=== PATIENT | male | born 1940 | race Caucasian/White ===

== ENCOUNTER → 2017-09-15 | Outpatient (CLI) | payer OTHER ==
[~2017-09-15] MED LIST: ASPI325; ASPI325 PO; ASPI81CH PO; ATECHL; ATEN50; ATEN50 PO; ATOR40TA; ATOR40TA PO; CHLO25A PO; CLOP75 PO; CYCL10 PO; HYDACE5 PO; Hair, Skin & N1 EACH PO; LEVSOD25 PO; NEBI5 PO; NIFE30ER PO; OLME20; OLME20 PO; Pacerone100 MG PO; RAMI5; RAMI5 PO; THYR60; THYR60 PO; TRIHYD253A PO; [UNRECOGNIZED DRUG - REMARK] PO
== END | disposition home or self-care (01) ==
LOC: PLD 13:27 → LAB SHORT 13:27
DX: L21.9 Seborrheic dermatitis, unspecified (principal)
CPT/HCPCS: 88305

== ENCOUNTER 2018-04-28 06:05 | Day surgery (SDC) | payer OTHER ==
[~2018-04-28] VITALS: Ht 167.6 cm; Wt 83.5 kg
[~2018-04-28 06:05] MED LIST changes: +AMLO5 PO; +Bystolic20 MG PO; +Isosorbide Mono30 MG PO; -NEBI5 PO; +NITR.6SL; +POTA10T PO; +ROSUVASTATIN CA20 MG PO; +TORSE20 PO
--- NOTE | 2018-04-28 07:12 | NUR ---
Ambulatory in Day Surgery. Surgical site prepped with 2% Chlorhexidine cloth wipe. History, Chart, Medications and Allergies reviewed before start of procedure. Lungs clear T/O to Auscultation. Patient confirms NPO status and agrees with scheduled surgery. Pre-Op teaching done. Pt verbalizes understanding. Patient States Post-Procedure ride home has been arranged. Patient reports completing Chlorhexadine shower X2 prior to admission to hospital.
--- NOTE | 2018-04-28 09:24 | NUR ---
04/28/18 0924 Apryl Alas SITE CHECK UPON START OF UMBILICAL HERNIA REPAIR @ 3430
--- NOTE | 2018-04-28 10:57 | NUR ---
PT DOING WELL. FOLLOWS INSTRUCTIONS TO CDB.
--- NOTE | 2018-04-28 11:04 | NUR ---
PT TO STEP VIA GURNEY. PT IS DROWSY, OPENS EYES TO VERBAL STIMULI. BIOX 88% ON RA. PT ENCOURAGED TO TAKE DEEP BREATHS, BIOX UP TO 93% BUT BIOX FALLS QUICKLY TO 83% WHEN PT RESTING. PT PLACED BACK ON O2 AT 2L NC. BIOX NO 94% 2L NC. PT DRESSING D&I TO UMBILICAL AREA AND R INGUINAL AREA.
--- NOTE | 2018-04-28 11:15 | NUR ---
PT MORE AWAKE AT THIS TIME. PT TO BEDSIDE. PT REPORTS PAIN ABOUT 3-4/10. O2 DECREASED TO 1L/MIN NC.
--- NOTE | 2018-04-28 11:33 | NUR ---
PT MORE AWAKE. TAKING PO FLUIDS AND CRACKERS WITHOUT DIFFICULTY. PT O2 TURNED OFF BIOX ABOUT 92% ON RA. PT ENCOURAGE TO TAKE DEEP BREATHS OFTEN AND COUGH. PT DEMONSTRATES UNDERSTANDING OF DEEP BREATHIMG AMD COUGHING. REVIEWED DISCHARGE INSTRUCTIONS WITH BOTH PATIENT AND HIS .
--- NOTE | 2018-04-28 12:00 | NUR ---
PT BECAME NAUSEA WHEN TRYING TO GET DRESSED. ORDER FOR ZOFRAN 4MG ODT FROM DR. WELCH FAXED TO PHARMACY. PT OUT TO GET CAR. PT DRESSED AND SITTING ON EDGE OF BED WAITING FOR MEDICATIONS. PT REPORTS FEELING BETTER.
--- NOTE | 2018-04-28 12:12 | NUR ---
Dressing to procedure site clean, dry, intact with no visible drainage, swelling, erythema or bruising noted. Patient States Post-Procedure ride home has been arranged. PT GIVEN ZOFRAN PRIOR TO DISCHARGE.
== END 2018-04-28 12:13 | disposition home or self-care (01) ==
LOC: ORSCMMR 06:05 → ORD 07:30 → ORSCMMR 07:30
PROVIDERS: Surgery
PROC: 0YU50JZ Supplement Right Inguinal Region with Synthetic Substitute, Open Approach (ICD-10-PCS; principal; 2018-04-28 07:30)
PROC: 0WUF0JZ Supplement Abdominal Wall with Synthetic Substitute, Open Approach (ICD-10-PCS; principal; 2018-04-28 07:30)
DX: K40.91 Unilateral inguinal hernia, without obstruction or gangrene, recurrent (principal); K42.9 Umbilical hernia without obstruction or gangrene; I10 Essential (primary) hypertension; I48.91 Unspecified atrial fibrillation; I25.10 Atherosclerotic heart disease of native coronary artery without angina pectoris; J44.9 Chronic obstructive pulmonary disease, unspecified; E03.9 Hypothyroidism, unspecified; Z95.0 Presence of cardiac pacemaker; Z79.01 Long term (current) use of anticoagulants; Z79.82 Long term (current) use of aspirin; Z79.899 Other long term (current) drug therapy
CPT/HCPCS: C1781; J0690; J1100; J2250; J2370; J2405; J2710; J3010; J7120

== ENCOUNTER 2019-05-29 17:29 | Emergency (ER) | payer OTHER ==
[~2019-05-29] VITALS: Ht 167.6 cm; Wt 75.8 kg
[2019-05-29 18:24] LABS: BASOPHILS ABSOLUTE AUTO 0.03 K/mm3 (0.00-0.23); BASOPHILS PERCENT AUTO 0 % (0-2); EOSINOPHILS ABSOLUTE AUTO 0.01 K/mm3 (0.00-0.68); EOSINOPHILS PERCENT AUTO 0 % (0-6); Hematocrit 38.8 % (37.0-53.0); Hemoglobin 12.6 g/dL (13.5-17.5); IMMATURE GRAN ABSOLUTE AUTO 0.03 K/mm3 (0.00-0.10); IMMATURE GRAN PERCENT AUTO 0 % (0-1); LYMPHOCYTES ABSOLUTE AUTO 1.53 K/mm3 (0.84-5.20); LYMPHOCYTES PERCENT AUTO 18 % (21-46); MONOCYTES ABSOLUTE AUTO 0.83 K/mm3 (0.16-1.47); MONOCYTES PERCENT AUTO 10 % (4-13); Mean Corpuscular HGB 32.4 pg (26.0-34.0); Mean Corpuscular HGB Conc 32.5 g/dL (31.5-36.5); Mean Corpuscular Volume 100 fL (80-100); Mean Platelet Volume 10.8 fL (9.1-12.4); NEUTROPHILS ABSOLUTE AUTO 5.87 K/mm3 (1.96-9.15); NEUTROPHILS PERCENT AUTO 71 % (41-73); Platelet Count 162 K/mm3 (150-400); RDW Coefficient Variation 13.4 % (11.7-14.2); RDW Standard Deviation 48.7 fL (35.1-46.3); Red Blood Cell Count 3.89 M/mm3 (4.30-5.90)
[2019-05-29 18:44] LABS: Alanine Aminotransfer (ALT/SGP 34 U/L (12-78); Anion Gap 6 mmol/L (6-16); Aspartate Aminotrans (AST/SGOT 20 U/L (12-37); Blood Urea Nitrogen 30 mg/dL (8-24); CO2, Blood 26 mmol/L (21-32); Calcium, Blood 8.6 mg/dL (8.5-10.1); Chloride, Blood 102 mmol/L (98-108); Creatinine, Blood 1.11 mg/dL (0.60-1.20); Glomerular Filtration Rate >60 (60-); Glucose, Blood 121 mg/dL (70-99); Sodium, Blood 134 mmol/L (136-145)
[2019-05-29 18:45] LABS: Albumin/Globulin Ratio 0.6 (0.8-1.8); Alk Phos 102 U/L (50-136); Bilirubin, Total 0.7 mg/dL (0.1-1.0); Globulin, Blood 4.8 g/dL (2.2-4.0); Total Protein, Blood 7.8 g/dL (6.4-8.2)
[2019-05-29 20:08] LABS: Source, Urine Clean Catch
[2019-05-29 20:15] LABS: Bilirubin, Urine Neg (Neg); Blood, Urine 1+ (Neg); Glucose Qualitative, Urine Neg (Neg); Ketones, Urine 1+ (Neg); Leukocyte Esterase, Urine Neg (Neg); Nitrite, Urine Neg (Neg); Protein, Urine 2+ (Neg); Urobilinogen, Urine NORM (Normal)
[2019-05-29 20:24] LABS: Appearance, Urine Clear (Clear); Color, Urine Yellow (P-Yellow)
[2019-05-29 20:26] LABS: Bacteria Not Seen /hpf; Red Blood Cells, Urine 0-2 /hpf (0-2); Squamous Epithelial Cells Rare /hpf (Few); White Blood Cells, Urine Not Seen /hpf (0-5)
[2019-05-29] MEDS ORDERED: [UNRECOGNIZED DRUG - OTHER] (21:19)
[2019-05-29] MEDS ORDERED: PACERONE100 M1 (21:20)
[2019-05-29 23:49] LABS: Alanine Aminotransfer (ALT/SGP 31 U/L (12-78); Albumin, Blood 2.6 g/dL (3.4-5.0); Albumin/Globulin Ratio 0.6 (0.8-1.8); Alk Phos 88 U/L (50-136); Anion Gap 5 mmol/L (6-16); Aspartate Aminotrans (AST/SGOT 22 U/L (12-37); Bilirubin, Total 0.8 mg/dL (0.1-1.0); Blood Urea Nitrogen 26 mg/dL (8-24); Bun/Creatinine Ratio 22.8 (12.0-20.0); CO2, Blood 28 mmol/L (21-32); Calcium, Blood 8.2 mg/dL (8.5-10.1); Chloride, Blood 104 mmol/L (98-108); Creatinine, Blood 1.14 mg/dL (0.60-1.20); Globulin, Blood 4.6 g/dL (2.2-4.0); Glomerular Filtration Rate >60 (60-); Glucose, Blood 127 mg/dL (70-99); Potassium, Blood 4.3 mmol/L (3.5-5.5); Sodium, Blood 137 mmol/L (136-145); Total Protein, Blood 7.2 g/dL (6.4-8.2)
== END 2019-05-30 00:06 | disposition short-term general hospital (02) ==
LOC: ER 17:29
PROVIDERS: Emergency Medicine; Physician Assistant
DX: I71.4 Abdominal aortic aneurysm, without rupture (principal); Z91.041 Radiographic dye allergy status; Z88.0 Allergy status to penicillin; Z91.040 Latex allergy status; Z88.8 Allergy status to other drugs, medicaments and biological substances; Z79.899 Other long term (current) drug therapy; Z79.82 Long term (current) use of aspirin; Z87.891 Personal history of nicotine dependence
CPT/HCPCS: 72100; 74176; 80053; 81001; 83690; 85025; 93005; 93010; 96361; 96374; 96375; 99285-25; J2270; J2405; J3010; J7030

== ENCOUNTER 2019-09-29 14:06 | Inpatient (IN) | payer OTHER ==
[~2019-09-29] VITALS: Ht 165.1 cm; Wt 76.8 kg
[~2019-09-29 14:06] MED LIST changes: -AMLODIPINE BESYL5 MG PO; -CLIN300 PO; -CODEINE-GUAIFE120 M1 UD; -FURO20 PO; -ISOSORBIDE MONO30 MG PO; -LOSARTAN POTASS25 M2 PO; -NATURE-THROID325 MG PO; -PRED20 PO; -ROSUVASTATIN CA40 MG PO; -TRAZ50 PO
[2019-09-29] MEDS ORDERED: FURO20 PO (15:47)
[2019-09-29] MEDS ORDERED: AMLODIPINE BESYL5 MG PO (15:49)
[2019-09-29 15:58] LABS: BASOPHILS ABSOLUTE AUTO 0.03 K/mm3 (0.00-0.23); BASOPHILS PERCENT AUTO 0 % (0-2); EOSINOPHILS ABSOLUTE AUTO 0.08 K/mm3 (0.00-0.68); EOSINOPHILS PERCENT AUTO 1 % (0-6); Hematocrit 40.9 % (37.0-53.0); Hemoglobin 12.7 g/dL (13.5-17.5); IMMATURE GRAN ABSOLUTE AUTO 0.03 K/mm3 (0.00-0.10); IMMATURE GRAN PERCENT AUTO 0 % (0-1); LYMPHOCYTES ABSOLUTE AUTO 1.92 K/mm3 (0.84-5.20); LYMPHOCYTES PERCENT AUTO 24 % (21-46); MONOCYTES ABSOLUTE AUTO 0.88 K/mm3 (0.16-1.47); MONOCYTES PERCENT AUTO 11 % (4-13); Mean Corpuscular HGB 32.2 pg (26.0-34.0); Mean Corpuscular HGB Conc 31.1 g/dL (31.5-36.5); Mean Corpuscular Volume 104 fL (80-100); Mean Platelet Volume 10.9 fL (9.1-12.4); NEUTROPHILS ABSOLUTE AUTO 5.11 K/mm3 (1.96-9.15); NEUTROPHILS PERCENT AUTO 63 % (41-73); Platelet Count 171 K/mm3 (150-400); RDW Coefficient Variation 15.6 % (11.7-14.2); RDW Standard Deviation 59.6 fL (35.1-46.3); Red Blood Cell Count 3.95 M/mm3 (4.30-5.90); White Blood Cell Count 8.05 K/mm3 (4.00-11.30)
[2019-09-29 16:14] LABS: Alanine Aminotransfer (ALT/SGP 21 U/L (12-78); Albumin, Blood 2.9 g/dL (3.4-5.0); Albumin/Globulin Ratio 0.6 (0.8-1.8); Alk Phos 99 U/L (50-136); Anion Gap 6 mmol/L (6-16); Aspartate Aminotrans (AST/SGOT 25 U/L (12-37); Bilirubin, Total 0.5 mg/dL (0.1-1.0); Blood Urea Nitrogen 19 mg/dL (8-24); Bun/Creatinine Ratio 17.1 (12.0-20.0); CO2, Blood 26 mmol/L (21-32); Calcium, Blood 8.7 mg/dL (8.5-10.1); Chloride, Blood 105 mmol/L (98-108); Creatinine, Blood 1.11 mg/dL (0.60-1.20); Globulin, Blood 4.9 g/dL (2.2-4.0); Glomerular Filtration Rate >60 (60-); Glucose, Blood 98 mg/dL (70-99); Sodium, Blood 137 mmol/L (136-145); Total Protein, Blood 7.8 g/dL (6.4-8.2)
[2019-09-29] MEDS ORDERED: LOSARTAN POTASS25 M2 PO (16:52)
[2019-09-29] MEDS ORDERED: ROSUVASTATIN CA40 MG PO (16:53)
[2019-09-29] MEDS ORDERED: TRAZ50 PO (16:53)
[2019-09-29] MEDS ORDERED: ISOSORBIDE MONO30 MG PO (16:53)
[2019-09-29] MEDS ORDERED: NATURE-THROID325 MG PO (21:24)
--- NOTE | 2019-09-30 02:24 | NUR ---
ASSUMED CARE OF PATIENT AT APPROXIMATELY 195 FROM ED RN DONNIE Nj PATIENT ARRIVED TO UNIT VIA STRETCHER; TRANSFER VIA VERBAL CUES FROM ED TO PCU STRETCHER. PATIENT ALERT AND ORIENTED X4; SBA OUT OF BED DUE TO LINES. PATIENT REPORTS PAIN IN HIS THROAT THAT HAS GRADUALLY BEEN WORSENING EVERY SINCE HE HAD RADIATION IN MAY; MEDICATED WITH EMAR; REPORTS GOOD RESULTS; STATES IV FENTANYL MADE HIS FEEL NAUSEOUS AND DROWSY. PATIENT REPORTS HE USES VICKS COUGH DROPS AT HOME FOR HIS THROAT. PATIENT REPORTS HE WAS SUPPOSE TO HAVE PEG TUBE REMOVED BECAUSE HE WAS EATING THREE TIMES A DAY BUT THE PAST FEW DAYS HE HASNT BEEN ABLE TO EAT MUCH. TUBE FEEDS ARE EVERY 3 HOURS (6X STARTING AT 0700). ADMISSION COMPLETE. IVF INFUSING PER ORDER FOR ONE BAG. NSR ON TELE; OXYGEN SATURATION ABOVE 90% ON ROOM AIR. PATIENT CURRENTLY RESTING IN BED; CALL LIGHT IN REACH; BED IN LOWEST POSISTION; WILL CONTINUE TO MONITOR AND ASSESS UNTIL END OF SHIFT.
[2019-09-30 04:15] LABS: Hematocrit 37.1 % (37.0-53.0); Hemoglobin 11.8 g/dL (13.5-17.5); Mean Corpuscular HGB 31.9 pg (26.0-34.0); Mean Corpuscular HGB Conc 31.8 g/dL (31.5-36.5); Mean Platelet Volume 10.8 fL (9.1-12.4); Platelet Count 147 K/mm3 (150-400); RDW Coefficient Variation 15.4 % (11.7-14.2); White Blood Cell Count 3.92 K/mm3 (4.00-11.30)
[2019-09-30 04:23] LABS: Mean Corpuscular Volume 100 fL (80-100)
[2019-09-30 04:34] LABS: Anion Gap 4 mmol/L (6-16); Blood Urea Nitrogen 23 mg/dL (8-24); Bun/Creatinine Ratio 22.3 (12.0-20.0); CO2, Blood 27 mmol/L (21-32); Calcium, Blood 8.7 mg/dL (8.5-10.1); Chloride, Blood 106 mmol/L (98-108); Creatinine, Blood 1.03 mg/dL (0.60-1.20); Glomerular Filtration Rate >60 (60-); Glucose, Blood 130 mg/dL (70-99); Potassium, Blood 4.7 mmol/L (3.5-5.5); Sodium, Blood 137 mmol/L (136-145)
--- NOTE | 2019-09-30 08:43 | NUR ---
AM NOTE... ASSUMED CARE OF PT APROX 0700. PT IS A&Ox4 AND IND IN THE ROOM. PT WAS ADMITTED FOR STRIDOR. PT REPORTS THAT HE FEELS LIKE THIS HAS IMPROVED SLIGHTLY. PT'S VS STABLE AT THIS TIME. PT L/S CLEAR T/O ON RA. BT PRESENT AND NORMOACTIVE, ABD SOFT NONTENDER TO PALP. NO EDEMA NOTED ON ASSESSMENT. WILL CONTINUE TO MONITOR.
[2019-09-30] MEDS ORDERED: CLIN300 PO (14:57)
[2019-09-30] MEDS ORDERED: CODEINE-GUAIFE120 M1 UD (14:59)
[2019-09-30] MEDS ORDERED: PRED20 PO (15:00)
--- NOTE | 2019-09-30 16:03 | NUR ---
PT D/C HOME... PT D/C HOME WITH . MEDS CALLED INTO PHARMACY OF PT'S CHOICE. ALL OF PT'S BELONGINGS PACKED AND SENT WITH THE PT. D/C EDUCATION PROVIDED TO PT AND . BOTH VERBALZIED THEIR UNDERSTANDING. IV WAS REMOVED WNL.
== END 2019-09-30 16:00 | disposition home or self-care (01) | DRG 156 ==
LOC: ER 14:06 → PCU 17:50
PROVIDERS: Physician Assistant; ADMIT Internal Medicine
DX: J38.5 Laryngeal spasm (principal); Z90.5 Acquired absence of kidney; I48.0 Paroxysmal atrial fibrillation; Z95.1 Presence of aortocoronary bypass graft; Z87.891 Personal history of nicotine dependence; I25.10 Atherosclerotic heart disease of native coronary artery without angina pectoris; Z93.1 Gastrostomy status; C32.9 Malignant neoplasm of larynx, unspecified; J44.9 Chronic obstructive pulmonary disease, unspecified; I73.9 Peripheral vascular disease, unspecified; Z79.82 Long term (current) use of aspirin
CPT/HCPCS: 36415; 80048; 80053; 84145; 85025; 85027; 96365; 96375; 96376; 99284-25; J1100; J3010; J7120

== ENCOUNTER → 2019-09-29 | Outpatient (CLI) | payer OTHER ==
[~2019-09-29] MED LIST changes: +AMLODIPINE BESYL5 MG PO; -ASPI81CH PO; +Aspirin EC81 MG PO; +CLIN300 PO; +CODEINE-GUAIFE120 M1 UD; +FURO20 PO; +ISOSORBIDE MONO30 MG PO; +LOSARTAN POTASS25 M2 PO; +NATURE-THROID325 MG PO; +PACERONE100 M1 PO; +PRED20 PO; +ROSUVASTATIN CA40 MG PO; +TRAZ50 PO; +[UNRECOGNIZED DRUG - OTHER]
== END | disposition home or self-care (01) ==
LOC: LAB 12:40 → LAB SHORT 12:40
DX: R05 Cough (principal)
CPT/HCPCS: 87070; 87205

== ENCOUNTER 2020-04-03 08:11 | Day surgery (SDC) | payer OTHER ==
[~2020-04-03] VITALS: Ht 167.6 cm; Wt 78.6 kg
[~2020-04-03 08:11] MED LIST changes: +AMLODIPINE BESYL5 MG PO; +CLIN300 PO; +CODEINE-GUAIFE120 M1 UD; +FURO20 PO; +ISOSORBIDE MONO30 MG PO; +LOSARTAN POTASS25 M2 PO; +NATURE-THROID325 MG PO; +NEBI10 PO; +PRED20 PO; +ROSUVASTATIN CA40 MG PO; +TRAZ50 PO
[2020-04-03] MEDS ORDERED: TORSE20 (08:44)
== END 2020-04-03 10:41 | disposition home or self-care (01) ==
LOC: ORSCSDS 08:11
PROVIDERS: Surgery
PROC: 0DBM8ZX Excision of Descending Colon, Via Natural or Artificial Opening Endoscopic, Diagnostic (ICD-10-PCS; principal; 2020-04-03 09:30)
PROC: 0DBL8ZX Excision of Transverse Colon, Via Natural or Artificial Opening Endoscopic, Diagnostic (ICD-10-PCS; principal; 2020-04-03 09:30)
DX: Z12.11 Encounter for screening for malignant neoplasm of colon (principal); D12.3 Benign neoplasm of transverse colon; D12.4 Benign neoplasm of descending colon; K57.30 Diverticulosis of large intestine without perforation or abscess without bleeding; Z87.891 Personal history of nicotine dependence; E03.9 Hypothyroidism, unspecified; Z85.51 Personal history of malignant neoplasm of bladder; Z85.528 Personal history of other malignant neoplasm of kidney; Z85.01 Personal history of malignant neoplasm of esophagus; J44.9 Chronic obstructive pulmonary disease, unspecified; I48.0 Paroxysmal atrial fibrillation; Z79.01 Long term (current) use of anticoagulants; E11.9 Type 2 diabetes mellitus without complications; E78.5 Hyperlipidemia, unspecified; I25.10 Atherosclerotic heart disease of native coronary artery without angina pectoris; Z95.0 Presence of cardiac pacemaker; Z79.899 Other long term (current) drug therapy
CPT/HCPCS: 88305; J2704; J7120

== ENCOUNTER 2021-05-11 11:24 | Emergency (ER) | payer OTHER ==
[~2021-05-11] VITALS: Ht 167.6 cm; Wt 81.7 kg
[~2021-05-11 11:24] MED LIST changes: +TORSE20
[2021-05-11 12:43] LABS: BASOPHILS ABSOLUTE AUTO 0.01 K/mm3 (0.00-0.23); BASOPHILS PERCENT AUTO 0 % (0-2); EOSINOPHILS ABSOLUTE AUTO 0.05 K/mm3 (0.00-0.68); EOSINOPHILS PERCENT AUTO 1 % (0-6); Hematocrit 35.4 % (37.0-53.0); Hemoglobin 11.7 g/dL (13.5-17.5); IMMATURE GRAN ABSOLUTE AUTO 0.02 K/mm3 (0.00-0.10); IMMATURE GRAN PERCENT AUTO 1 % (0-1); LYMPHOCYTES ABSOLUTE AUTO 1.22 K/mm3 (0.84-5.20); LYMPHOCYTES PERCENT AUTO 29 % (21-46); MONOCYTES ABSOLUTE AUTO 0.39 K/mm3 (0.16-1.47); MONOCYTES PERCENT AUTO 9 % (4-13); Mean Corpuscular HGB 34.5 pg (26.0-34.0); Mean Corpuscular HGB Conc 33.1 g/dL (31.5-36.5); Mean Corpuscular Volume 104 fL (80-100); Mean Platelet Volume 10.9 fL (9.1-12.4); NEUTROPHILS PERCENT AUTO 60 % (41-73); Platelet Count 108 K/mm3 (150-400); RDW Coefficient Variation 14.1 % (11.7-14.2); Red Blood Cell Count 3.39 M/mm3 (4.30-5.90); White Blood Cell Count 4.19 K/mm3 (4.00-11.30)
[2021-05-11 13:07] LABS: Alanine Aminotransfer (ALT/SGP 22 U/L (12-78); Albumin, Blood 3.1 g/dL (3.4-5.0); Albumin/Globulin Ratio 0.8 (0.8-1.8); Alk Phos 96 U/L (50-136); Anion Gap 4 mmol/L (6-16); Aspartate Aminotrans (AST/SGOT 24 U/L (12-37); Bilirubin, Total 0.4 mg/dL (0.1-1.0); Blood Urea Nitrogen 22 mg/dL (8-24); Bun/Creatinine Ratio 14.9 (12.0-20.0); CO2, Blood 28 mmol/L (21-32); Calcium, Blood 8.2 mg/dL (8.5-10.1); Chloride, Blood 108 mmol/L (98-108); Creatinine, Blood 1.48 mg/dL (0.60-1.20); Globulin, Blood 3.7 g/dL (2.2-4.0); Glomerular Filtration Rate 46 (60-); Glucose, Blood 115 mg/dL (70-99); Potassium, Blood 4.4 mmol/L (3.5-5.5); Sodium, Blood 140 mmol/L (136-145); Total Protein, Blood 6.8 g/dL (6.4-8.2); Troponin I <0.015 ng/mL (0.000-0.040)
== END 2021-05-11 14:00 | disposition home or self-care (01) ==
LOC: ER 11:24
PROVIDERS: Emergency Medicine
DX: R00.2 Palpitations (principal); I95.9 Hypotension, unspecified; I48.0 Paroxysmal atrial fibrillation; Z88.0 Allergy status to penicillin; Z91.048 Other nonmedicinal substance allergy status; Z91.041 Radiographic dye allergy status; Z91.040 Latex allergy status; Z88.8 Allergy status to other drugs, medicaments and biological substances; Z79.899 Other long term (current) drug therapy; Z79.82 Long term (current) use of aspirin; Z79.02 Long term (current) use of antithrombotics/antiplatelets
CPT/HCPCS: 36415; 71045; 80053; 84484; 85025; 93005; 93010; 99285-25; J7030

== ENCOUNTER 2022-02-24 15:15 | Day surgery (SDC) | payer OTHER ==
[2022-02-24] MEDS ORDERED: ROSUVASTATIN CA40 MG PO (16:41)
--- NOTE | 2022-02-24 16:47 | NUR ---
PVR: 51ML PT VOIDED IN TOILET EMMEDIATELY PRIOR TO BLADDER SCAN. PT WAS POSITIONED ON GURNEY, SUPINE W/ HEAD ELEVATED APPROX 20 DEG. US GEL WAS APPLIED TO THE CREASE BETWEEN THE ABDOMEN AND PELVICE. AFTER 3-4 SCANS THE BLADDER WAS LOCATED. SCAN RESULTS SHOWED 51 ML PVR.
== END 2022-02-24 16:40 | disposition home or self-care (01) ==
LOC: ATC 15:15
DX: N17.9 Acute kidney failure, unspecified (principal); R33.9 Retention of urine, unspecified; Z95.1 Presence of aortocoronary bypass graft; Z95.0 Presence of cardiac pacemaker; J44.9 Chronic obstructive pulmonary disease, unspecified; N18.1 Chronic kidney disease, stage 1; J18.9 Pneumonia, unspecified organism
CPT/HCPCS: 51798

== ENCOUNTER → 2022-02-24 | Outpatient (CLI) | payer OTHER ==
[2022-02-24 12:58] LABS: Source, Urine Clean Catch
[2022-02-24 13:08] LABS: Hematocrit 33.9 % (37.0-53.0); Mean Corpuscular HGB 34.6 pg (26.0-34.0); Mean Corpuscular HGB Conc 35.4 g/dL (31.5-36.5); Mean Corpuscular Volume 98 fL (80-100); Mean Platelet Volume 11.8 fL (9.1-12.4); RDW Coefficient Variation 14.5 % (11.7-14.2); RDW Standard Deviation 51.9 fL (35.1-46.3); Red Blood Cell Count 3.47 M/mm3 (4.30-5.90); White Blood Cell Count 7.03 K/mm3 (4.00-11.30)
[2022-02-24 13:14] LABS: Platelet Count 50 K/mm3 (150-400)
[2022-02-24 13:16] LABS: Albumin, Blood 2.9 g/dL (3.4-5.0); Albumin/Globulin Ratio 0.7 (0.8-1.8); Bilirubin, Total 0.7 mg/dL (0.1-1.0); Bun/Creatinine Ratio 14.7 (12.0-20.0); Calcium, Blood 8.5 mg/dL (8.5-10.1); Creatinine, Blood 4.02 mg/dL (0.60-1.20); Globulin, Blood 3.9 g/dL (2.2-4.0); Potassium, Blood 3.8 mmol/L (3.5-5.5); Thyroid Stimulating Hormone 0.398 uIU/mL (0.360-4.800); Total Protein, Blood 6.8 g/dL (6.4-8.2)
[2022-02-24 13:20] LABS: BAND PERCENT MAN 34 % (0-8); BASOPHILS PERCENT MAN 0 % (0-2); EOSINOPHILS PERCENT MAN 0 % (0-6); LYMPHOCYTES % ATYPICAL MANUAL 1 % (0-0); LYMPHOCYTES PERCENT MAN 9 % (21-46); MONOCYTES ABSOLUTE MAN 0.28 K/mm3 (0.16-1.47); MONOCYTES PERCENT MAN 4 % (4-13); NEUTROPHILS ABSOLUTE MAN 6.04 K/mm3 (1.96-9.15); SEG NEUTROPHILS PERCENT MAN 52 % (41-73); TOTAL CELLS COUNTED 100
[2022-02-24 13:21] LABS: Appearance, Urine Hazy (Clear); Bilirubin, Urine Neg (Neg); Blood, Urine 5+ (Neg); Color, Urine Yellow (P-Yellow); Glucose Qualitative, Urine Neg (Neg); Ketones, Urine 1+ (Neg); Leukocyte Esterase, Urine Neg (Neg); Nitrite, Urine Neg (Neg); Protein, Urine 3+ (Neg); Specific Gravity, Urine 1.015 (1.003-1.022); Urobilinogen, Urine NORM (Normal)
[2022-02-24 13:31] LABS: White Blood Cells, Urine 0-2 /hpf (0-5)
[2022-02-24 13:32] LABS: Amorphous Mod (0-Heavy); Bacteria Mod /hpf; Hyaline Casts 0-2 /lpf (0-2); Renal Epithelial Rare /hpf (0-Rare); Squamous Epithelial Cells Rare /hpf (Few); Transitional Epithelial Cells Rare /hpf (0-Rare)
== END ==
LOC: LAB SHORT 11:55 → LAB 11:55
PROVIDERS: Internal Medicine
DX: N18.1 Chronic kidney disease, stage 1 (principal); J18.9 Pneumonia, unspecified organism; S09.90XA Unspecified injury of head, initial encounter; R41.0 Disorientation, unspecified; R30.0 Dysuria
CPT/HCPCS: 80053; 81001; 84443; 85025; 87086

== ENCOUNTER → 2022-02-24 | Outpatient (CLI) | payer OTHER | LOC: LAB SHORT 14:45 → LAB 14:45 | DX: J18.9 Pneumonia, unspecified organism (principal) | CPT/HCPCS: 87040 ==

== ENCOUNTER 2022-02-25 09:30 | Inpatient (IN) | payer OTHER ==
[~2022-02-25] VITALS: Ht 167.6 cm; Wt 75.1 kg
[2022-02-25 10:35] LABS: Hematocrit 35.8 % (37.0-53.0); Hemoglobin 12.5 g/dL (13.5-17.5); Mean Corpuscular HGB 34.4 pg (26.0-34.0); Mean Corpuscular HGB Conc 34.9 g/dL (31.5-36.5); Mean Corpuscular Volume 99 fL (80-100); RDW Coefficient Variation 14.8 % (11.7-14.2); RDW Standard Deviation 53.9 fL (35.1-46.3); Red Blood Cell Count 3.63 M/mm3 (4.30-5.90); White Blood Cell Count 7.02 K/mm3 (4.00-11.30)
[2022-02-25 10:45] LABS: Mean Platelet Volume 12.8 fL (9.1-12.4)
[2022-02-25 10:47] LABS: Platelet Count 48 K/mm3 (150-400)
[2022-02-25 11:11] LABS: Albumin, Blood 2.7 g/dL (3.4-5.0); Albumin/Globulin Ratio 0.6 (0.8-1.8); BAND PERCENT MAN 31 % (0-8); BASOPHILS PERCENT MAN 0 % (0-2); Bilirubin, Total 0.5 mg/dL (0.1-1.0); Calcium, Blood 8.6 mg/dL (8.5-10.1); Creatinine, Blood 6.01 mg/dL (0.60-1.20); EOSINOPHILS PERCENT MAN 0 % (0-6); Globulin, Blood 4.3 g/dL (2.2-4.0); LYMPHOCYTES ABSOLUTE MAN 0.14 K/mm3 (0.84-5.20); LYMPHOCYTES PERCENT MAN 2 % (21-46); METAMYELOCYTE ABSOLUTE MAN 0.07 K/mm3 (0.00-0.00); METAMYELOCYTE PERCENT MAN 1 % (0-0); MONOCYTES ABSOLUTE MAN 0.14 K/mm3 (0.16-1.47); MONOCYTES PERCENT MAN 2 % (4-13); MYELOCYTE ABSOLUTE MAN 0.21 K/mm3 (0.00-0.00); MYELOCYTE PERCENT MAN 3 % (0-0); Magnesium, Blood 2.5 mg/dL (1.6-2.4); NEUTROPHILS ABSOLUTE MAN 6.45 K/mm3 (1.96-9.15); Potassium, Blood 3.8 mmol/L (3.5-5.5); SEG NEUTROPHILS PERCENT MAN 61 % (41-73); TOTAL CELLS COUNTED 100
[2022-02-25 11:21] LABS: Influenza A, PCR NEGATIVE (NEGATIVE); Influenza B, PCR NEGATIVE (NEGATIVE); Resp Syncytial Virus, PCR NEGATIVE (NEGATIVE); SARS-Cov-2 (COVID-19) PCR, MMC NEGATIVE (NEGATIVE)
[2022-02-25 12:02] LABS: Source, Urine Clean Catch
[2022-02-25 12:15] LABS: Appearance, Urine Hazy (Clear); Bilirubin, Urine Neg (Neg); Blood, Urine 5+ (Neg); Color, Urine Yellow (P-Yellow); Glucose Qualitative, Urine Neg (Neg); Ketones, Urine Neg (Neg); Leukocyte Esterase, Urine Neg (Neg); Nitrite, Urine Neg (Neg); Protein, Urine 3+ (Neg); Specific Gravity, Urine 1.015 (1.003-1.022); Urobilinogen, Urine NORM (Normal)
[2022-02-25 12:21] LABS: International Normalized Ratio 1.22; Prothrombin Time Results 12.6 Sec (9.7-11.5)
[2022-02-25 12:29] LABS: Amorphous Heavy (0-Heavy)
[2022-02-25 12:33] LABS: Bacteria Mod /hpf; Squamous Epithelial Cells Rare /hpf (Few)
[2022-02-25 12:34] LABS: Transitional Epithelial Cells Rare /hpf (0-Rare)
[2022-02-25 12:35] LABS: Renal Epithelial Rare /hpf (0-Rare)
--- NOTE | 2022-02-25 15:48 | NUR ---
Spiritual Care "Things We Want to Know"* While Pt. was getting a pic line and settled into the room. Met with Spouse in the hallway waiting area. A friend was present. Spouse was unsettled by what was taking so long, so with a calming presence engaged in conversation. Facilitated a Life Review of the Pt. Spouse displayed evidence of a good sense of humor. Considered issues of chris and belief, Used the waiting time to initate "Things We Want to Know" on behalf of the Pt. Spouse and friend verbalized gratitude for the spiritual care visit. "Things We Care to Know" is a Spiritual Care ICU engine pilot program designed to personalize the Pt./Staff relationship, especially for the Pt. who can't speak for themselves.
[2022-02-25 15:58] LABS: Base Excess Venous -15.2 mmol/L; Bicarbonate Venous 13.6 mmol/L (24.0-30.0); PCO2 Venous 32.6 mmHg (38-42)
[2022-02-25 17:41] LABS: International Normalized Ratio 1.19; Prothrombin Time Results 12.4 Sec (9.7-11.5)
[2022-02-25 17:57] LABS: Source, Urine Foley catheter
--- NOTE | 2022-02-25 18:13 | NUR ---
Spiritual Care Visit. Pt. is awake in bed and welcomes my visit. Pt. is unsettled by his diagnosis. Listen empathetically with a calming presence and establish rapport. Pt. displayed evidence of discomfort so this b2b sales executive kept the visit short. Prayed with Pt. (he grabbed my hand). Pt. verbalized gratitude for the spiritual care visit.
[2022-02-25 18:37] LABS: Appearance, Urine Hazy (Clear); Bilirubin, Urine Neg (Neg); Blood, Urine 4+ (Neg); Color, Urine Yellow (P-Yellow); Glucose Qualitative, Urine Neg (Neg); Ketones, Urine Neg (Neg); Leukocyte Esterase, Urine Neg (Neg); Nitrite, Urine Neg (Neg); Protein, Urine 3+ (Neg); Specific Gravity, Urine 1.015 (1.003-1.022); Urobilinogen, Urine NORM (Normal)
[2022-02-25 18:45] LABS: Amorphous Mod (0-Heavy); Bacteria Mod /hpf; Squamous Epithelial Cells Rare /hpf (Few); White Blood Cells, Urine 0-2 /hpf (0-5)
[2022-02-25 18:46] LABS: Renal Epithelial Rare /hpf (0-Rare)
--- NOTE | 2022-02-25 19:10 | NUR ---
SHIFT SUMMARY: pt admitted to ICU at 1357 from ED with levophed running at 17 and vasopressin through PIVs. PICC line started as quickly as possible. NEURO: pt intact. he is slow to respond and soft spoken. CARDIAC: afib 100s. Vasopressin stopped and levophed titrated down to 4. RESPIRATORY: on RA, complains of occasional SOB with exertion. GI/: lund catheter placed, minimal output. One loose BM upon arrival. SKIN: bruising noted throughout. pt states they are from recent falls. PSYCH/SOCIAL: family at bedside and suportive.
[2022-02-25 19:36] LABS: Eosinophils-Raw #,Urine 3; White Blood Cells Urine 0-2 /hpf (0-5)
[2022-02-25 21:32] LABS: Albumin, Blood 2.4 g/dL (3.4-5.0); Anion Gap 17 mmol/L (6-16); Blood Urea Nitrogen 75 mg/dL (8-24); Bun/Creatinine Ratio 12.8 (12.0-20.0); CO2, Blood 17 mmol/L (21-32); Calcium, Blood 6.7 mg/dL (8.5-10.1); Chloride, Blood 99 mmol/L (98-108); Creatinine, Blood 5.84 mg/dL (0.60-1.20); Glomerular Filtration Rate 9 (60-); Glucose, Blood 241 mg/dL (70-99); Phosphorus, Blood 4.7 mg/dL (2.5-4.9); Potassium, Blood 3.2 mmol/L (3.5-5.5); Sodium, Blood 133 mmol/L (136-145)
[2022-02-26 04:16] LABS: Hematocrit 26.3 % (37.0-53.0); Hemoglobin 9.5 g/dL (13.5-17.5); Mean Corpuscular HGB 35.1 pg (26.0-34.0); Mean Corpuscular HGB Conc 36.1 g/dL (31.5-36.5); Mean Corpuscular Volume 97 fL (80-100); RDW Coefficient Variation 14.8 % (11.7-14.2); RDW Standard Deviation 52.3 fL (35.1-46.3); Red Blood Cell Count 2.71 M/mm3 (4.30-5.90); White Blood Cell Count 4.23 K/mm3 (4.00-11.30)
[2022-02-26 04:22] LABS: Mean Platelet Volume 13.3 fL (9.1-12.4); Platelet Count 32 K/mm3 (150-400)
[2022-02-26 04:39] LABS: Albumin, Blood 2.2 g/dL (3.4-5.0); Albumin/Globulin Ratio 0.7 (0.8-1.8); Bilirubin, Total 0.4 mg/dL (0.1-1.0); Bun/Creatinine Ratio 12.8 (12.0-20.0); Calcium, Blood 6.9 mg/dL (8.5-10.1); Creatinine, Blood 5.94 mg/dL (0.60-1.20); Globulin, Blood 3.2 g/dL (2.2-4.0); Magnesium, Blood 1.7 mg/dL (1.6-2.4); Potassium, Blood 3.2 mmol/L (3.5-5.5); Total Protein, Blood 5.4 g/dL (6.4-8.2)
--- NOTE | 2022-02-26 06:35 | NUR ---
SHIFT SUMMARY: GENERAL: THIS AUTHOR ASSUMED PATIENT CARES FROM . PATIENT'S VISITED UNTIL APPROX 1999. PATIENT ABLE TO SLEEP FOR A GOOD PORTION OF THE NIGHT. ORIENTED X4. NEURO: AFEBRILE BORDERING ON HYPOTHERMIC. REPORTS SOME PAIN DESCRIBED AN "ACHE" FROM LYING IN BED ALL DAY. HE IS PLEASANT AND, THIS AUTHOR BELIEVES, QUITE TANGIRNAQ. CARDS: AFIB ALL NIGHT WITH VARYING RATES. CURRENTLY IN THE 70-80S, BUT OCCASIONALLY IN THE LOW 100-110S. AUTHOR ATTEMPTED WEANING OFF LEVOPHED, BUT GIVEN PT IS S/P NEPHRECTOMY, PREFER KEEPING SBP >90 AND MAP >65, SO PATIENT REMAINS ON VERY LOW DOSE LEVO. PLATELETS THIS AM DROPPED TO 32; NOTIFIED. RESP: INCREASINGLY WHEEZY BILATERALLY; AUTHOR CALLED RT FOR DUONEB AND CALLED MD TO REQUEST CXR. NOT READ YET, PLEASE SEE EHR. PATIENT DENIES HX OF SCOTTY. IN THE MIDDLE OF THE NIGHT HE BEGAN TO DESAT TO THE MID-80S, SO 2L NC APPLIED. MSK/INTEG: HASN'T BEEN OUT OF BED, REPORTS FEELING WEAK. NO SKIN CONCERNS OTHER THAN PICC/MIDLINE SITE LEAKING. DRESSING UNSATURATED. GI/: ADEQUATE UOP VIA ROMERO; NO BM THIS SHIFT.
--- NOTE | 2022-02-26 07:00 | NUR ---
ASSUME CARE: I have assumed care of this patient.
--- NOTE | 2022-02-26 07:55 | NUR ---
PROVIDER UPDATE: Dr Pinto called and notified of pt's respiratory status. Pt complaining of sore throat with progressive wheezing. Telephone order to stop bicarb and 20mg IV lasix.
[2022-02-26 08:32] LABS: Base Excess Venous -7.5 mmol/L; Bicarbonate Venous 18.7 mmol/L (24.0-30.0); PCO2 Venous 35.8 mmHg (38-42); PO2 Venous 55.9 mmHg (38-42); pH Blood Venous 7.32 (7.34-7.37)
--- NOTE | 2022-02-26 10:24 | NUR ---
Spiritual Care Visit. Pt. is awake in bed and welcomes my visit. Pt. is pleasant. Pt. verbalized that he did not sleep much, but that he is feeling better. Established rapport and normalized the Pt. experience. Prayed with Pt. Pt. verbalized graititude for the spiritual care visit.
--- NOTE | 2022-02-26 15:14 | NUR ---
Spiritual Care Visit. Pt. is awake in bed. Spouse invites this cras in to meet their forensics team director. Establish rapport and encourgae the Pt. Family and Rn Placement verbalize gratitude for the spiritual care visit.
--- NOTE | 2022-02-26 16:30 | NUR ---
TRANSFER/SHIFT SUMMARY: pt transferred from ICU 15 to PCU 11. NEURO: WNL CARDIAC: afib 90-110s. HR noted to be up to 130 for a very brief moment while pt was eating. RESPIRATORY: pt with diffuse wheezes this morning. have since improved. lungs dim at bases. Pt on 2L NC GI/: minimal appetite. no BM today. Stinson in place and draining urine. SKIN: no new breakdown noted. bruising throughout PSYCH/SOCIAL: SO at bedside and supportive. She was updated by RN.
--- NOTE | 2022-02-26 17:22 | NUR ---
TRANSFER FROM ICU PATIENT NEW TRANSFER TO UNIT FROM ICU. ADMITTED FOR SEPTIC SHOCK, BILAT PNEUMONIA, AND REGINE ON CKD. PATIENT ARRIVED TO PCU 11 IN BED, ALERT AND ORIENTED. WEAK WITH GENERALIZED TREMORS. NOTED SOB AND INCREASED WOB WITH SLIDE TRANSFER, BUT SATTING IN 90S ON 2L O2 VIA NC. TACHY 120-130. BP STABLE SYSTOLIC 120S. LS WHEEZY THROUGHOUT. BICARB RUNNING AT 75 MLS/HRS. TOLERATING SIPS OF WATER. SPOUSE ATTENTIVE IN ROOM. CALL LIGHT WITHIN REACH.
--- NOTE | 2022-02-26 20:07 | NUR ---
CALL TO RESIDENT HOSPITALIST Madeline STANLEY REGARDING PERSISTENT AFIB RVR WITH RATES INTO THE 120S -130S AT TIMES. PATIENT TAKES AMIODARONE 100 MG DAILY AT HOME AND THIS MEDICATION HAS NOT BEEN ORDERED DURING THIS HOSPITALIZATION. I INQUIRED ABOUT STARTING HIS HOME DOSE. MD STANLEY DOES NOT WANT TO DO SO AT THIS TIME DUE TO NOT KNOWING WHY THIS HOME MEDICATION WAS NOT ORDERED BY THE PRIMARY DOCTOR DURING THE DAY. UPON MY REVIEW OF THE PATIENT'S HOME MEDICATIONS, IT APPEARS THAT NONE OF THE HOME MEDICATIONS HAVE BEEN ORDERED. ORDER RECEIVED FOR ONE TIME DOSE OF 5 MG IV LOPRESSOR.
--- NOTE | 2022-02-27 03:05 | NUR ---
CALL TO RESIDENT HOSPITALIST Madeline STANLEY REGARDING PERSISTENT AFIB RVR WITH RATES INTO THE 120S DESPITE PREVIOUS ADMINISTRATION OF 5 MG IV LOPRESSOR EARLIER IN THE SHIFT. PATIENT TAKES AMIODARONE 100 MG DAILY AT HOME AND THIS MEDICATION HAS NOT BEEN ORDERED DURING THIS HOSPITALIZATION. I INQUIRED ABOUT STARTING HIS HOME DOSE. MD STANLEY DOES NOT WANT TO DO SO AT THIS TIME DUE TO NOT KNOWING WHY THIS WAS NOT ORDERED BY THE PRIMARY TEAM DURING THE DAY. MD STANLEY ORDERED PATIENT'S HOME DOSE OF BYSTOLIC 10 MG PO. UNFORTUNATELY THIS IS NOT IN OUR FORMULARY, SO PHARMD SHAHRZAD NORMAN RECOMMENDED SUBSTITUTING PO CARVEDILOL 6.25 MG BID WITH MEALS. IF THIS FAILS TO CORRECT AFIB RVR, MD STANLEY WILL GIVE CONSIDERATION TO STARTING THE HOME DOSE OF AMIODARONE.
[2022-02-27 04:11] LABS: Hematocrit 27.3 % (37.0-53.0); Mean Corpuscular HGB 34.1 pg (26.0-34.0); Mean Corpuscular HGB Conc 36.6 g/dL (31.5-36.5); Mean Corpuscular Volume 93 fL (80-100); RDW Coefficient Variation 14.5 % (11.7-14.2); RDW Standard Deviation 48.7 fL (35.1-46.3); Red Blood Cell Count 2.93 M/mm3 (4.30-5.90); White Blood Cell Count 6.85 K/mm3 (4.00-11.30)
[2022-02-27 04:23] LABS: Platelet Count 40 K/mm3 (150-400)
[2022-02-27 04:37] LABS: Albumin, Blood 2.3 g/dL (3.4-5.0); Albumin/Globulin Ratio 0.7 (0.8-1.8); Bilirubin, Total 0.5 mg/dL (0.1-1.0); Calcium, Blood 7.5 mg/dL (8.5-10.1); Creatinine, Blood 5.93 mg/dL (0.60-1.20); Globulin, Blood 3.3 g/dL (2.2-4.0); Potassium, Blood 2.9 mmol/L (3.5-5.5); Total Protein, Blood 5.6 g/dL (6.4-8.2)
[2022-02-27 05:29] LABS: BAND PERCENT MAN 20 % (0-8); BASOPHILS PERCENT MAN 0 % (0-2); EOSINOPHILS PERCENT MAN 0 % (0-6); LYMPHOCYTES ABSOLUTE MAN 0.13 K/mm3 (0.84-5.20); LYMPHOCYTES PERCENT MAN 2 % (21-46); MONOCYTES ABSOLUTE MAN 0.41 K/mm3 (0.16-1.47); MONOCYTES PERCENT MAN 6 % (4-13); SEG NEUTROPHILS PERCENT MAN 72 % (41-73); TOTAL CELLS COUNTED 100
--- NOTE | 2022-02-27 06:21 | NUR ---
MR. BRAXTON REPORTS FEELING SOMEHWAT BETTER THIS MORNING COMPARED TO ADMISSION, SPECIFICALLY THAT HE NO LONGER HAS THE RIGHT SIDE CHEST PAIN AND HIS BREATHING IS NOT LABORED. THROUGH MOST OF THE NIGHT, MR. CRANES WAS IN ATRIAL FIBRILLATION AFIB W/RAPID VENTRICULAR RATE (RVR) WITH RATES RANGING FROM 100S - 130S. THIS PERSISTED UNTIL 04:55 THIS MORNING WHEN HE CONVERTED TO SIUNUS RHYTHM. MR. BRAXTON DOES HAVE A HISTORY OF PAROXYSMAL AFIB AND TAKES AMIODARONE. SEE PREVIOUS NOTES FOR INTERVENTIONS RELATED TO TREATMENT OF THE AFIB WITH RVR OVERNIGHT. MR. BRAXTON'S SUPPLEMENTAL OXYGEN NEEDS INCREASED FROM 2 LPM TO 4 LPM OVERNIGHT. HE CONTINUES TO HAVE DYSPNEA WITH EXERTION AND INCREASED OXYGEN DEMAND WITH GETTING UP TO THE BEDSIDE COMMODE. MR. BRAXTON COMPLAINED OF A SORE THROAT LAST NIGHT WHICH WAS RELIEVED WITH HUMIDIFICATION OF HIS SUPPLEMENTAL OXYGEN, TYLENOL AND CEPACOL LOZENGES.
[2022-02-27 14:37] LABS: Albumin, Blood 2.3 g/dL (3.4-5.0); Anion Gap 13 mmol/L (6-16); Blood Urea Nitrogen 89 mg/dL (8-24); Bun/Creatinine Ratio 14.5 (12.0-20.0); CO2, Blood 24 mmol/L (21-32); Calcium, Blood 7.5 mg/dL (8.5-10.1); Chloride, Blood 96 mmol/L (98-108); Creatinine, Blood 6.13 mg/dL (0.60-1.20); Glomerular Filtration Rate 9 (60-); Glucose, Blood 146 mg/dL (70-99); Phosphorus, Blood 5.1 mg/dL (2.5-4.9); Potassium, Blood 4.2 mmol/L (3.5-5.5); Sodium, Blood 133 mmol/L (136-145)
--- NOTE | 2022-02-27 18:16 | NUR ---
SHIFT SUMMARY; ASSUMED CARE AT 0700. A/A/OX4 DURING SHIFT. L/S WHEEZY T/O. BREATHING TREATMENTS PRN AND LASIX PER EMAR. 5L 02 VIA NC TO MAINTAIN SATS IN LOW 90'S. ROMERO CATH IN DRAINING TO GRAVITY. MOVES SELF ON GURNEY TO REPOSITION, A/A/OX4. PICC TO UPPER LEFT ARM, NO ACUTE MEDICAL CHANGES DURING SHIFT, WILL CONTINUE TO MONITOR AND TREAT UNTIL CHANGE OF SHIFT.
[2022-02-28 04:10] LABS: Hematocrit 26.9 % (37.0-53.0); Hemoglobin 9.6 g/dL (13.5-17.5); Mean Corpuscular HGB 34.2 pg (26.0-34.0); Mean Corpuscular HGB Conc 35.7 g/dL (31.5-36.5); Mean Corpuscular Volume 96 fL (80-100); RDW Coefficient Variation 14.7 % (11.7-14.2); RDW Standard Deviation 51.3 fL (35.1-46.3); Red Blood Cell Count 2.81 M/mm3 (4.30-5.90); White Blood Cell Count 7.91 K/mm3 (4.00-11.30)
[2022-02-28 04:35] LABS: Platelet Count 47 K/mm3 (150-400)
[2022-02-28 04:38] LABS: Albumin, Blood 2.2 g/dL (3.4-5.0); Anion Gap 13 mmol/L (6-16); Blood Urea Nitrogen 103 mg/dL (8-24); Bun/Creatinine Ratio 16.3 (12.0-20.0); CO2, Blood 23 mmol/L (21-32); Calcium, Blood 7.5 mg/dL (8.5-10.1); Chloride, Blood 97 mmol/L (98-108); Creatinine, Blood 6.31 mg/dL (0.60-1.20); Glomerular Filtration Rate 8 (60-); Glucose, Blood 179 mg/dL (70-99); Magnesium, Blood 2.8 mg/dL (1.6-2.4); Phosphorus, Blood 5.6 mg/dL (2.5-4.9); Potassium, Blood 4.1 mmol/L (3.5-5.5); Sodium, Blood 133 mmol/L (136-145)
[2022-02-28 05:24] LABS: BAND PERCENT MAN 18 % (0-8); BASOPHILS PERCENT MAN 0 % (0-2); EOSINOPHILS ABSOLUTE MAN 0.07 K/mm3 (0.00-0.68); EOSINOPHILS PERCENT MAN 1 % (0-6); LYMPHOCYTES ABSOLUTE MAN 0.23 K/mm3 (0.84-5.20); LYMPHOCYTES PERCENT MAN 3 % (21-46); MONOCYTES ABSOLUTE MAN 0.31 K/mm3 (0.16-1.47); MONOCYTES PERCENT MAN 4 % (4-13); NEUTROPHILS ABSOLUTE MAN 7.27 K/mm3 (1.96-9.15); SEG NEUTROPHILS PERCENT MAN 74 % (41-73); TOTAL CELLS COUNTED 100
--- NOTE | 2022-02-28 06:34 | NUR ---
PATIENT CONTINUES TO BE DYSPNEIC WITH MINIMAL EXERTION AND HIS SUPPLEMENTAL OXYGEN NEEDS INCREASED FROM 5 LPM TO 6 LPM OVERNIGHT. HE HAD 1 EPISODE OF BLOOD TINGED SPUTUM. PT STATES THAT THIS IS NOT A NEW ISSUE FOR HIM SINCE HIS RADIATION TREATMENTS FOR THROAT CANCER. PLATELETS INCREASED FROM 40 TO 47. CREATININE REMAINS ELEVATED AND INCREASED FROM 5.93 TO 6.31. URINE OUTPUT OF 1100 mL OVERNIGHT. PATIENT IS CONCERNED ABOUT HIS PROGNOSIS, SPECIFICALLY IT RELATES TO HIS INCREASED DIFFICULTY BREATHING AND INABILITY TO ENGAGE IN MUCH ACTIVITY WITHOUT OUT PROFOUND SHORTNESS OF BREATH.
--- NOTE | 2022-02-28 18:05 | NUR ---
SHIFT SUMMARY; ASSUMED CARE AT 0700. A/A/OX4. REPOSITIONS SELF ON HEATHER PARKER IN PLACE DRAINING YELLOW URINE. 6L 02 VIA NC, WHEEZES IN UPPER LOBES, DIM IN BASES. INCENTIVE SPIROMETER GIVEN TODAY WITH TEACHING. SAT IN CHAIR AT BEDSIDE FOR SEVERAL HOURS, TOLERATED WELL. VSS, WILL CONTINUE TO MONITOR AND TREAT UNTIL CHANGE OF SHIFT.
[2022-03-01 04:00] LABS: Hematocrit 26.5 % (37.0-53.0); Hemoglobin 9.5 g/dL (13.5-17.5); Mean Corpuscular HGB 34.5 pg (26.0-34.0); Mean Corpuscular HGB Conc 35.8 g/dL (31.5-36.5); Mean Corpuscular Volume 96 fL (80-100); Platelet Count 54 K/mm3 (150-400); RDW Coefficient Variation 15.1 % (11.7-14.2); RDW Standard Deviation 52.4 fL (35.1-46.3); Red Blood Cell Count 2.75 M/mm3 (4.30-5.90); White Blood Cell Count 10.18 K/mm3 (4.00-11.30)
[2022-03-01 04:16] LABS: Albumin, Blood 2.2 g/dL (3.4-5.0); Anion Gap 12 mmol/L (6-16); Blood Urea Nitrogen 114 mg/dL (8-24); Bun/Creatinine Ratio 17.4 (12.0-20.0); CO2, Blood 24 mmol/L (21-32); Calcium, Blood 7.8 mg/dL (8.5-10.1); Chloride, Blood 99 mmol/L (98-108); Creatinine, Blood 6.57 mg/dL (0.60-1.20); Glomerular Filtration Rate 8 (60-); Glucose, Blood 134 mg/dL (70-99); Phosphorus, Blood 6.2 mg/dL (2.5-4.9); Potassium, Blood 4.1 mmol/L (3.5-5.5); Sodium, Blood 135 mmol/L (136-145)
[2022-03-01 04:32] LABS: BAND PERCENT MAN 7 % (0-8); BASOPHILS PERCENT MAN 0 % (0-2); EOSINOPHILS PERCENT MAN 0 % (0-6); LYMPHOCYTES ABSOLUTE MAN 0.71 K/mm3 (0.84-5.20); LYMPHOCYTES PERCENT MAN 7 % (21-46); METAMYELOCYTE PERCENT MAN 1 % (0-0); MONOCYTES PERCENT MAN 5 % (4-13); NEUTROPHILS ABSOLUTE MAN 8.85 K/mm3 (1.96-9.15); SEG NEUTROPHILS PERCENT MAN 80 % (41-73); TOTAL CELLS COUNTED 100
--- NOTE | 2022-03-01 06:39 | NUR ---
SHIFT SUMMARY: PT RESTED FOR A COUPLE OF HOURS DURING THE NIGHT. ALERT AND ORIENTED AND FOLLOWS COMMANDS. NO C/O PAIN. REMAINED ON 6-8L NC THROUGHOUT THE NIGHT, TACHYPIC AT TIMES AND CONTINUALLY COUGHED UP THICK/BLOODY SPUTUM. PT HAS WHEEZES THROUGHOUT LUNG LYONS AND LEUNG. THIS A.M. HE WANTED TO SIT AT THE EDGE OF THE BED D/T LEUNG. SR W/AV BLOCK. ROMERO STILL INTACT WITH 1L CLEAR YELLOW URINE OUTPUT, NO BM. IRINA PICC LINE STILL INTACT.
--- NOTE | 2022-03-01 17:50 | NUR ---
SHIFT SUMMARY; ASSUMED CARE AT 0700. A/A/OX4 DURING SHIFT. 6-9L 02 VIA HIGH LIAM CANNULA. DESAT TO 78% WITH EXERTION. RECOVERS IN APPROX 10 MINS. UP TO CHAIR AT BEDSIDE FOR MEALS. ROMERO CATH IN PLACE DRAINING CLEAR YELLOW URINE. REPOSITIONS SELF ON BED NEEDED. NO ACUTE MEDICAL CHANGES, WILL CONTINUE TO MONITOR AND TREAT UNTIL CHANGE OF SHIFT.
--- NOTE | 2022-03-01 21:36 | NUR ---
CARE ASSUMPTION: PATIENT A&O, O2 >91% ON 7L NC, OTHER VS WNL. PATIENT SAT ON SIDE OF BED FOR AN HOUR TO IMPROVE SOB. ROMERO DRAINING YELLOW URINE. BLE COMPRESSION DEVICES IN PLACE. BED LOW WITH CALL LIGHT IN REACH.
[2022-03-02 05:04] LABS: BASOPHILS ABSOLUTE AUTO 0.03 K/mm3 (0.00-0.23); BASOPHILS PERCENT AUTO 0 % (0-2); EOSINOPHILS ABSOLUTE AUTO 0.01 K/mm3 (0.00-0.68); EOSINOPHILS PERCENT AUTO 0 % (0-6); Hematocrit 27.4 % (37.0-53.0); Hemoglobin 9.5 g/dL (13.5-17.5); IMMATURE GRAN ABSOLUTE AUTO 0.31 K/mm3 (0.00-0.10); IMMATURE GRAN PERCENT AUTO 4 % (0-1); LYMPHOCYTES PERCENT AUTO 12 % (21-46); MONOCYTES ABSOLUTE AUTO 0.27 K/mm3 (0.16-1.47); MONOCYTES PERCENT AUTO 3 % (4-13); Mean Corpuscular HGB 33.7 pg (26.0-34.0); Mean Corpuscular HGB Conc 34.7 g/dL (31.5-36.5); Mean Corpuscular Volume 97 fL (80-100); NEUTROPHILS ABSOLUTE AUTO 6.95 K/mm3 (1.96-9.15); NEUTROPHILS PERCENT AUTO 81 % (41-73); Platelet Count 56 K/mm3 (150-400); RDW Coefficient Variation 15.3 % (11.7-14.2); RDW Standard Deviation 54.6 fL (35.1-46.3); Red Blood Cell Count 2.82 M/mm3 (4.30-5.90); White Blood Cell Count 8.57 K/mm3 (4.00-11.30)
[2022-03-02 05:14] LABS: Mean Platelet Volume 13.5 fL (9.1-12.4)
[2022-03-02 05:28] LABS: Albumin, Blood 2.2 g/dL (3.4-5.0); Anion Gap 12 mmol/L (6-16); Blood Urea Nitrogen 125 mg/dL (8-24); Bun/Creatinine Ratio 20.1 (12.0-20.0); CO2, Blood 24 mmol/L (21-32); Calcium, Blood 7.7 mg/dL (8.5-10.1); Chloride, Blood 101 mmol/L (98-108); Creatinine, Blood 6.23 mg/dL (0.60-1.20); Glomerular Filtration Rate 8 (60-); Glucose, Blood 123 mg/dL (70-99); Phosphorus, Blood 6.3 mg/dL (2.5-4.9); Potassium, Blood 3.8 mmol/L (3.5-5.5); Sodium, Blood 137 mmol/L (136-145)
--- NOTE | 2022-03-02 05:49 | NUR ---
SHIFT SUMMARY: PATIENT A&O X4, ROMERO DRAINING TO GRAVITY, DENIES CHEST PAIN, ENDORSES MILD SOB WITH EXERTION. 02 >92% ON 4-8L NC. AFEBRILE. BP WNL. NO ADVERSE EVENTS THIS SHIFT. PLEASANT AND COOPERATIVE WITH CARE. MIDLINE PATENT AND DRAWS. BED LOW WITH CALL LIGHT IN REACH. WILL CONTINUE TO MONITOR UNTIL REPORT TO DAY RN.
--- NOTE | 2022-03-02 12:14 | NUR ---
pt update upon taking pt's vitals, pt bp 80's systolic, dropped from 130's at start of shift. pt asymptomatic, resting up in chair. Noticed this same trend from yesterday, similar time frame. Received cardiac medication this am as scheduled. Call placed to MD Clifton. MD Clifton to look at chart/medications.
[2022-03-02 14:00] LABS: Albumin, Blood 2.2 g/dL (3.4-5.0); Albumin/Globulin Ratio 0.7 (0.8-1.8); Bilirubin, Direct 0.3 mg/dL (0.0-0.3); Bilirubin, Indirect 0.2 mg/dL (0.1-0.7); Bilirubin, Total 0.5 mg/dL (0.1-1.0); Globulin, Blood 3.2 g/dL (2.2-4.0); Total Protein, Blood 5.4 g/dL (6.4-8.2)
--- NOTE | 2022-03-02 16:55 | NUR ---
SHIFT SUMMARY pt alert, oriented. Sp02>90% on 10L. pt does desat to low 80's when nc comes out of nose, recovers quickly. Pt able to ambulate w/ pt from bed to chair w/o sob. Did c/o of sob when attempting to walk to bathroom distance. Low bp this shift. MD Clifton in room to assess, made changes with pt's medication. denied pain. Stinson catheter draining to gravity. no bm this shift. bed bath given this shift. Pt's spend most of shift w/ patient. Had concerns over diet. Yevgeniy from dietary called and came to speak w/ pt and pt's for quite some time to answer questions. Pt had a few visitors. States this afternoon, "im tired. Whenever I fall alseep, someone else comes in". Call light in reach.
--- NOTE | 2022-03-02 21:48 | NUR ---
CARE ASSUMPTION: PATIENT REPORTS BEING VERY BUSY AND TIRED TODAY. VSS ON 12L HI-FLOW. PATIENT SAT AT BEDSIDE FOR 10 MINUTES. MEDICATED PER EMAR. DENIES PAIN, SOB, OR OTHER DISCOMFORT. STATES HE JUST WANTS TO REST. MIDLINE IV PATENT. BED LOW WITH CALL LIGHT IN REACH.
--- NOTE | 2022-03-03 01:00 | NUR ---
UPDATE: PATIENT O2 NEEDS INCREASED - MAINTAINING 89-91% ON 15L HI-FLOW. RT RECOMMENDED NEW CHEST X-RAY TO DETERMINE IF FLUID OVERLOAD OR WORSENING PNA. PATIENT HAS NOT BEEN DIURESED SINCE THE 02/27/2022. CALL MADE TO RESIDENT AND RECEIVED NEW ORDERS FOR CHEST X-RAY.
[2022-03-03 05:37] LABS: BASOPHILS ABSOLUTE AUTO 0.01 K/mm3 (0.00-0.23); BASOPHILS PERCENT AUTO 0 % (0-2); EOSINOPHILS ABSOLUTE AUTO 0.06 K/mm3 (0.00-0.68); EOSINOPHILS PERCENT AUTO 1 % (0-6); Hematocrit 26.8 % (37.0-53.0); Hemoglobin 9.6 g/dL (13.5-17.5); IMMATURE GRAN ABSOLUTE AUTO 0.13 K/mm3 (0.00-0.10); IMMATURE GRAN PERCENT AUTO 2 % (0-1); LYMPHOCYTES ABSOLUTE AUTO 0.75 K/mm3 (0.84-5.20); LYMPHOCYTES PERCENT AUTO 12 % (21-46); MONOCYTES ABSOLUTE AUTO 0.24 K/mm3 (0.16-1.47); MONOCYTES PERCENT AUTO 4 % (4-13); Mean Corpuscular HGB Conc 35.8 g/dL (31.5-36.5); Mean Corpuscular Volume 98 fL (80-100); Mean Platelet Volume 12.7 fL (9.1-12.4); NEUTROPHILS ABSOLUTE AUTO 4.89 K/mm3 (1.96-9.15); NEUTROPHILS PERCENT AUTO 81 % (41-73); Platelet Count 60 K/mm3 (150-400); RDW Coefficient Variation 15.6 % (11.7-14.2); RDW Standard Deviation 55.2 fL (35.1-46.3); Red Blood Cell Count 2.74 M/mm3 (4.30-5.90); White Blood Cell Count 6.08 K/mm3 (4.00-11.30)
--- NOTE | 2022-03-03 06:04 | NUR ---
SHIFT SUMMARY: PATIENT MAINTAINING O2 SAT >92% ON 15L HI-FLOW NC. DENIES CHEST PAIN, SOB, OR DISCOMFORT. ROMERO DRAINING YELLOW URINE TO GRAVITY. PLEASANT AND COOPERATIVE WITH CARE. CHEST XR DONE ~0200 BUT NO IMAGES AT THIS TIME. RESIDENT WANTED TO SEE X-RAY BEFORE ORDERING BNP OR D-DIMER. MEDICATED PER EMAR. BED LOW WITH CALL LIGHT IN REACH. WILL CONTINUE TO MONITOR UNTIL REPORT TO DAY RN.
[2022-03-03 06:21] LABS: Albumin, Blood 2.2 g/dL (3.4-5.0); Albumin/Globulin Ratio 0.7 (0.8-1.8); Bilirubin, Total 0.8 mg/dL (0.1-1.0); Bun/Creatinine Ratio 21.9 (12.0-20.0); Creatinine, Blood 5.62 mg/dL (0.60-1.20); Globulin, Blood 3.3 g/dL (2.2-4.0); Magnesium, Blood 2.3 mg/dL (1.6-2.4); Phosphorus, Blood 5.2 mg/dL (2.5-4.9); Total Protein, Blood 5.5 g/dL (6.4-8.2)
--- NOTE | 2022-03-03 14:09 | NUR ---
Spiritual Care Visit. Pt. is somnilent and only occasionally responsive. Spouse is present and welcomes my visit. Spouse verbalizes updates of the pts. condition and displays evidence that she is encouraged with his progress. Listen empathetically with a calming presence. prayed for Pt. and spouse. Spouse verbalized gratitude for the spiritual care visit. Continued to establish rapport and will remain available to the family.
--- NOTE | 2022-03-03 17:01 | NUR ---
shift summary Pt had a good day. Pt alert, oriented. at bedside, several visitors t/o day. vss. sp02 currently >90% on 8l humidified nc. breathing tx provided by RT. Productive harsh cough. Pt denied pain. Stinson catheter drained yellow urine to gravity. MD Clifton called to notify pt had thrush in mouth. Medication started per emar. Pt states he is "bored" in the hospital. cooperative with care. call light in reach.
[2022-03-04 07:22] LABS: BASOPHILS ABSOLUTE AUTO 0.01 K/mm3 (0.00-0.23); BASOPHILS PERCENT AUTO 0 % (0-2); EOSINOPHILS ABSOLUTE AUTO 0.07 K/mm3 (0.00-0.68); EOSINOPHILS PERCENT AUTO 1 % (0-6); Hematocrit 25.9 % (37.0-53.0); Hemoglobin 8.9 g/dL (13.5-17.5); IMMATURE GRAN ABSOLUTE AUTO 0.08 K/mm3 (0.00-0.10); IMMATURE GRAN PERCENT AUTO 1 % (0-1); LYMPHOCYTES ABSOLUTE AUTO 0.71 K/mm3 (0.84-5.20); LYMPHOCYTES PERCENT AUTO 13 % (21-46); MONOCYTES ABSOLUTE AUTO 0.26 K/mm3 (0.16-1.47); MONOCYTES PERCENT AUTO 5 % (4-13); Mean Corpuscular HGB 34.4 pg (26.0-34.0); Mean Corpuscular HGB Conc 34.4 g/dL (31.5-36.5); Mean Corpuscular Volume 100 fL (80-100); Mean Platelet Volume 12.5 fL (9.1-12.4); NEUTROPHILS ABSOLUTE AUTO 4.49 K/mm3 (1.96-9.15); NEUTROPHILS PERCENT AUTO 80 % (41-73); Platelet Count 74 K/mm3 (150-400); RDW Coefficient Variation 15.5 % (11.7-14.2); RDW Standard Deviation 56.3 fL (35.1-46.3); Red Blood Cell Count 2.59 M/mm3 (4.30-5.90); White Blood Cell Count 5.62 K/mm3 (4.00-11.30)
[2022-03-04 07:37] LABS: Albumin, Blood 2.2 g/dL (3.4-5.0); Albumin/Globulin Ratio 0.6 (0.8-1.8); Bilirubin, Total 0.7 mg/dL (0.1-1.0); Bun/Creatinine Ratio 22.1 (12.0-20.0); Calcium, Blood 7.8 mg/dL (8.5-10.1); Creatinine, Blood 5.06 mg/dL (0.60-1.20); Globulin, Blood 3.4 g/dL (2.2-4.0); Total Protein, Blood 5.6 g/dL (6.4-8.2)
--- NOTE | 2022-03-04 15:54 | NUR ---
CARE CONFERENCE WITH PT RN AND CHARGE NURSE. PT IS DOING WORSE TODAY, INCREASE IN SOB AND OXYGEN NEEDS. PT POOR APPETITE AND FATIGUED. MET WITH PT AND SPOUSE, PT IS ALERT, COOPERATIVE AND ANSWERING QUESTIONS APPROP. PT AND FAMILY ASK ABOUT AN UPDATE ON PT CONDITION. ADVISED, AFTER SPEAKING TO RN-CXR IS UNCHANGED AND PT IS REQUIRING MORE OXYGEN TODAY VS YESTERDAY. PT REPORTS HE IS FEELING BETTER TODAY. PT DENIED PAIN, SPEAKING IN FULL SENTANCES, APPETITE IS POOR AND FEELS TIRED. PT REPORTS HE IS HAVING TROUBLE SLEEPING WHILE IN THE HOSPITAL. PT AND FAMILY REPORT PT WAS INDEPENDENT AT HOME PRIOR TO THIS HOSPITALIZATION AND HE IS ANXIOUS TO BE DC TO SNF FOR REHAB. THEY ARE ASKING FOR UPDATE ON DC PLAN, ADVISED WILL FOLLOW UP. PT FALLS ASLEEP, THERAPEUTIC CONVERSATION AND LISTENING TO PTS , CLOVER. SHE TALKS ABOUT CURRENT EVENTS, ELECTION RESULTS AND OTHER GENERAL TOPICS. WE HAD A NICE CONVERSATION AND VISIT. AT THE END, SHE THANKED ME FOR MY VISIT AND STATES "IT WAS NICE TO HAVE SOMEONE TO TALK TO." ADVISED HER I WOULD BE BACK TOMORROW TO FOLLOW UP, CHECK ON THEM AND GIVE AN UPDATE ON DC PLAN. OFFERED TO GET CLOVER WATER OR ANYTHING ELSE, SHE DECLINED. REFILLED PT CUP WITH FRESH WATER AND ICE AFTER CHECKING WITH RN ABOUT DIET/FLUID RESTRICTIONS. PALLIATIVE CARE WILL CONTINUE TO SUPPORT AND MONITOR.
--- NOTE | 2022-03-04 16:04 | NUR ---
SPOKE TO RN, SHE HAS NOT HEARD THAT THE DC PLAN WOULD BE FOR THE PATIENT TO GO TO REHAB AFTER DC FROM HERE. ADVISED HE IS NOT STABLE AND WILL NEED TO BE TUNED UP A BIT MORE BEFORE CONSIDERING DC. NOTES REVIEWED AND PT DID SUGGEST REHAB FOR PT. PT IS STILL SLEEPING WHEN I ENTER THE ROOM, UPDATED CLOVER THAT HER IS NOT YET READY FOR DC, NEEDS SOME MORE TUNING UP AND THAT WHEN WE ARE CLOSER TO DC WILL DISCUSS OPTIONS FOR REHAB/SNF. SHE VU AND WAS APPRECIATIVE FOR THE UPDATE.
--- NOTE | 2022-03-04 18:12 | NUR ---
SHIFT SUMMARY NO ACUTE CHANGES THIS SHIFT. PT ALERT, VSS. SP02>90% ON AIRVO 40L 55%. pRODUCTIVE COUGH, WHITE THICK SPUTUM TINGED W/ DARK RED. C/O OF CLOGGED NOSE, AIRVO IN MOUTH PART OF DAY. PT SAT ON BEDSIDE FOR ALL 3 MEALS. STOOD UP AT BEDSIDE X1 FOR LINEN CHANGE. WORKED W/ PT TODAY. ROMERO CATHETER DRAINING TO GRAVITY. IN ROOM FOR MOST OF DAY. FRIENDS VISITED PERIODICALLY. RESTING IN ROOM. CALL LIGHT IN REACH.
[2022-03-04 20:10] LABS: CK-BB 0 % (0); CK-MB 6 % (0-3); CK-MM 94 % (97-100); MACRO TYPE 1 0 % (Not Observed); MACRO TYPE 2 0 % (Not Observed)
[2022-03-05 06:42] LABS: BASOPHILS ABSOLUTE AUTO 0.01 K/mm3 (0.00-0.23); BASOPHILS PERCENT AUTO 0 % (0-2); EOSINOPHILS ABSOLUTE AUTO 0.05 K/mm3 (0.00-0.68); EOSINOPHILS PERCENT AUTO 1 % (0-6); Hematocrit 25.8 % (37.0-53.0); Hemoglobin 8.6 g/dL (13.5-17.5); IMMATURE GRAN ABSOLUTE AUTO 0.07 K/mm3 (0.00-0.10); IMMATURE GRAN PERCENT AUTO 1 % (0-1); LYMPHOCYTES PERCENT AUTO 14 % (21-46); MONOCYTES ABSOLUTE AUTO 0.22 K/mm3 (0.16-1.47); MONOCYTES PERCENT AUTO 5 % (4-13); Mean Corpuscular HGB Conc 33.3 g/dL (31.5-36.5); Mean Corpuscular Volume 102 fL (80-100); Mean Platelet Volume 12.9 fL (9.1-12.4); NEUTROPHILS ABSOLUTE AUTO 3.87 K/mm3 (1.96-9.15); NEUTROPHILS PERCENT AUTO 79 % (41-73); Platelet Count 74 K/mm3 (150-400); RDW Coefficient Variation 15.4 % (11.7-14.2); RDW Standard Deviation 58.4 fL (35.1-46.3); Red Blood Cell Count 2.53 M/mm3 (4.30-5.90); White Blood Cell Count 4.92 K/mm3 (4.00-11.30)
[2022-03-05 06:50] LABS: Albumin/Globulin Ratio 0.6 (0.8-1.8); Bilirubin, Total 0.6 mg/dL (0.1-1.0); Calcium, Blood 7.2 mg/dL (8.5-10.1); Creatinine, Blood 4.47 mg/dL (0.60-1.20); Globulin, Blood 3.3 g/dL (2.2-4.0); Magnesium, Blood 1.9 mg/dL (1.6-2.4); Phosphorus, Blood 4.4 mg/dL (2.5-4.9); Potassium, Blood 3.9 mmol/L (3.5-5.5); Total Protein, Blood 5.3 g/dL (6.4-8.2)
--- NOTE | 2022-03-05 06:51 | NUR ---
SHIFT SUMMARY PT ALERT AND ORIENTED X4. AFEBRILE. HR 70-80'S. BP STABLE. ON AIRVO 40L 55% FI02 SATS OVER 92%. NO C/O PAIN OR DISCOMFORT. ROMERO IN PLACE DRAINING YELLOW URINE TO GRAVITY, 1250 OUT THIS EVENING. MIDLINE DRESSING CHANGED- PATENT AND DRAWS BLOOD. PT ASLEEP MOST OF NIGHT. IN BED WITH CALL ALARM AT SIDE, WILL CONTINUE TO MONITOR UNTIL REPORT GIVEN TO ONCOMING RN
--- NOTE | 2022-03-05 17:56 | NUR ---
SHIFT SUMMARY PT ALERT UP TO SIDE OF BED FOR MEALS. PT WITH IMPROVING RENAL LABS. VSS. AFEBRILE. PT REPORTS IMPROVEMENT OF BREATHING, PT HAS BEEN TITRATED FROM AIRVO TO NC AT 8L. PT REPORTS THAT HE REQUIRES ASSISTANCE WITH ALL MOVING AND REPOSITIONING ALTHOUGH HE APPEARS TO BE ABLE TO PARTICIPATE WELL IN TURNS AND ROLLING. PT ON VEGETARIAN DIET, PT REPORTS THAT HE DOES NOT CARE FOR THE FOOD BEING SERVED WILL PLAN TO ASSIST PT WITH COMPLETING HIS MENU IN THE AM MULTIPLE FAMILY MEMBERS AND FRIENDS HAVE ADDRESSED THAT PT DOES NOT CARE FOR THE FOOD. PT OTHERWISE APEPARS TO HAVE BEEN FREE OF DISTRESS T/O THE SHIFT. FAMILY AT BEDSIDE HAS BEEN EDUCATED AND UPDATED, S/O EXPRESSED CONCERN STATING THAT SHE BELIEVED PT WAS RECIEVING LEVOTHYROXINE HERE AND IS EDUCATED THAT HE IS ON ARMOUR THYROID HE IS AT HOME.
[2022-03-06 04:46] LABS: BASOPHILS ABSOLUTE AUTO 0.01 K/mm3 (0.00-0.23); BASOPHILS PERCENT AUTO 0 % (0-2); EOSINOPHILS ABSOLUTE AUTO 0.04 K/mm3 (0.00-0.68); EOSINOPHILS PERCENT AUTO 1 % (0-6); Hematocrit 25.1 % (37.0-53.0); Hemoglobin 8.4 g/dL (13.5-17.5); IMMATURE GRAN ABSOLUTE AUTO 0.05 K/mm3 (0.00-0.10); IMMATURE GRAN PERCENT AUTO 1 % (0-1); LYMPHOCYTES ABSOLUTE AUTO 0.71 K/mm3 (0.84-5.20); LYMPHOCYTES PERCENT AUTO 12 % (21-46); MONOCYTES ABSOLUTE AUTO 0.26 K/mm3 (0.16-1.47); MONOCYTES PERCENT AUTO 5 % (4-13); Mean Corpuscular HGB 34.3 pg (26.0-34.0); Mean Corpuscular HGB Conc 33.5 g/dL (31.5-36.5); Mean Corpuscular Volume 102 fL (80-100); Mean Platelet Volume 12.9 fL (9.1-12.4); NEUTROPHILS ABSOLUTE AUTO 4.75 K/mm3 (1.96-9.15); NEUTROPHILS PERCENT AUTO 82 % (41-73); Platelet Count 71 K/mm3 (150-400); RDW Coefficient Variation 15.3 % (11.7-14.2); RDW Standard Deviation 57.4 fL (35.1-46.3); Red Blood Cell Count 2.45 M/mm3 (4.30-5.90); White Blood Cell Count 5.82 K/mm3 (4.00-11.30)
[2022-03-06 05:02] LABS: Anion Gap 7 mmol/L (6-16); Blood Urea Nitrogen 88 mg/dL (8-24); Bun/Creatinine Ratio 21.1 (12.0-20.0); CO2, Blood 28 mmol/L (21-32); Calcium, Blood 7.9 mg/dL (8.5-10.1); Chloride, Blood 105 mmol/L (98-108); Creatinine, Blood 4.17 mg/dL (0.60-1.20); Glomerular Filtration Rate 14 (60-); Glucose, Blood 109 mg/dL (70-99); Phosphorus, Blood 4.5 mg/dL (2.5-4.9); Sodium, Blood 140 mmol/L (136-145)
--- NOTE | 2022-03-06 05:47 | NUR ---
SHIFT SUMMARY NO ACUTE EVENTS THIS SHIFT. PT ALERT AND ORIENTED. COOPERATIVE TO CARE. AFEBRILE. BP STABLE. ON 8L HIFLO NC SATS OVER 92%. COUGH LESS THAN PREVIOUS EVENING AND PT REPORTS IMPROVED BREATHING. ROMERO IN PLACE DRAINING YELLOW URINE TO GRAVITY. MIDLINE PATENT AND DRAWS BLOOD. IN BED RESTING WITH CALL ALARM AT SIDE, WILL CONTINUE TO MONITOR UNTIL REPORT GIVEN TO ONCOMING RN
--- NOTE | 2022-03-06 18:27 | NUR ---
PT HAS BEEN UP TO BEDSIDE FOR MEALS T/O THE DAY. PT DID AMBULATE TO BEDSIDE CHAIR, HE BECAME SOB WITH AMBULATION AND BEGAN COUGHING MORE. PT WAS ABOUT TO WORK WITH PHYSICAL THERAPY TODAY. PT BECAME HYPOTENSIVE THIS AFTERNOON, HYPOTENSION DID RESOLVE WITH A 250ML NS BOLUS, PT WAS ASYMPTOMATIC T/O THE HYPOTENSIVE MOMENT. PT ALSO HAD A COUGHING EPISODE THIS EVENING WHICH HE PRODUCED A LARGE AMOUNT OF SPUTUM WHICH MADE HIM NAUSEOUS, PT REFUSED ANY MEDS FOR NAUSEA, BUT DID ALLOW FOR SOME KRYS MIST AND CRACKERS TO SOOTHE NAUSEA. PT OTHERWISE A/O X4, REPORTS IMPROVEMENT IN BREATHING. REMAINS ON 8L HI FLOW NASAL CANNULA WITH HUMIDITY WHICH HE IS TOLERATING WELL
--- NOTE | 2022-03-07 05:21 | NUR ---
SHIFT SUMMARY PT ALERT AND ORIENTED. AFEBRILE. HR SR 70-90'S. BP STABLE. ON HIFLO NC TITRATED FROM 12L TO 8L, SATS OVER 90%. PT REPORTS NO PAIN OR DISCOMFORT THIS EVENING. BOWEL CARE GIVEN, PT DID NOT HAVE A BM THIS EVENING. CONDOM CATH IN PLACE DRAINING TO GRAVITY, FELL OFF ONCE THIS SHIFT. IN BED SLEEPING WITH CALL ALARM AT SIDE, WILL CONTINUE TO MONITOR UNTIL REPORT GIVEN TO ONCOMING RN
[2022-03-07 05:35] LABS: BASOPHILS ABSOLUTE AUTO 0.02 K/mm3 (0.00-0.23); BASOPHILS PERCENT AUTO 0 % (0-2); EOSINOPHILS ABSOLUTE AUTO 0.03 K/mm3 (0.00-0.68); EOSINOPHILS PERCENT AUTO 1 % (0-6); Hematocrit 26.5 % (37.0-53.0); Hemoglobin 8.9 g/dL (13.5-17.5); IMMATURE GRAN ABSOLUTE AUTO 0.04 K/mm3 (0.00-0.10); IMMATURE GRAN PERCENT AUTO 1 % (0-1); LYMPHOCYTES ABSOLUTE AUTO 0.81 K/mm3 (0.84-5.20); LYMPHOCYTES PERCENT AUTO 15 % (21-46); MONOCYTES ABSOLUTE AUTO 0.27 K/mm3 (0.16-1.47); MONOCYTES PERCENT AUTO 5 % (4-13); Mean Corpuscular HGB 34.9 pg (26.0-34.0); Mean Corpuscular HGB Conc 33.6 g/dL (31.5-36.5); Mean Corpuscular Volume 104 fL (80-100); Mean Platelet Volume 12.2 fL (9.1-12.4); NEUTROPHILS ABSOLUTE AUTO 4.42 K/mm3 (1.96-9.15); NEUTROPHILS PERCENT AUTO 79 % (41-73); Platelet Count 75 K/mm3 (150-400); RDW Coefficient Variation 15.3 % (11.7-14.2); RDW Standard Deviation 58.3 fL (35.1-46.3); Red Blood Cell Count 2.55 M/mm3 (4.30-5.90); White Blood Cell Count 5.59 K/mm3 (4.00-11.30)
[2022-03-07 05:58] LABS: Albumin, Blood 2.1 g/dL (3.4-5.0); Anion Gap 7 mmol/L (6-16); Blood Urea Nitrogen 75 mg/dL (8-24); Bun/Creatinine Ratio 20.1 (12.0-20.0); CO2, Blood 28 mmol/L (21-32); Chloride, Blood 105 mmol/L (98-108); Creatinine, Blood 3.74 mg/dL (0.60-1.20); Glomerular Filtration Rate 16 (60-); Glucose, Blood 106 mg/dL (70-99); Sodium, Blood 140 mmol/L (136-145)
--- NOTE | 2022-03-07 18:21 | NUR ---
PT HAS BEEN UP TO BEDSIDE CHAIR TODAY, HE SEEMED TO TOERATE AMBULATION BETTER TODAY WITHOUT DESATURATION. PT WAS ABLE TO BE TITRATED DOWN TO 7L TODAY, SPO2 REMAINS IN THE HIGH 90s WHILE ASLEEP, HE HAS NUMEROUS VISITORS IN AND OUT T/O THE DAY HE IS TALKING HE QUICKLY DESTAURATES WHICH HAS PROVED DIFFICULT TO TITRATE OXYGEN BELOW 6L DURING THIS SHIFT. OTHERWISE VSS. REPORTS CONTINUED IMPROVEMENT IN WORK OF BREATHING, DNEIES CP.
[2022-03-08 04:26] LABS: BASOPHILS ABSOLUTE AUTO 0.01 K/mm3 (0.00-0.23); BASOPHILS PERCENT AUTO 0 % (0-2); EOSINOPHILS ABSOLUTE AUTO 0.05 K/mm3 (0.00-0.68); EOSINOPHILS PERCENT AUTO 1 % (0-6); Hematocrit 26.2 % (37.0-53.0); Hemoglobin 8.5 g/dL (13.5-17.5); IMMATURE GRAN ABSOLUTE AUTO 0.05 K/mm3 (0.00-0.10); IMMATURE GRAN PERCENT AUTO 1 % (0-1); LYMPHOCYTES PERCENT AUTO 21 % (21-46); MONOCYTES ABSOLUTE AUTO 0.21 K/mm3 (0.16-1.47); MONOCYTES PERCENT AUTO 4 % (4-13); Mean Corpuscular HGB 34.3 pg (26.0-34.0); Mean Corpuscular HGB Conc 32.4 g/dL (31.5-36.5); Mean Corpuscular Volume 106 fL (80-100); Mean Platelet Volume 12.9 fL (9.1-12.4); NEUTROPHILS ABSOLUTE AUTO 3.83 K/mm3 (1.96-9.15); NEUTROPHILS PERCENT AUTO 73 % (41-73); Platelet Count 65 K/mm3 (150-400); RDW Coefficient Variation 15.3 % (11.7-14.2); RDW Standard Deviation 59.4 fL (35.1-46.3); Red Blood Cell Count 2.48 M/mm3 (4.30-5.90); White Blood Cell Count 5.25 K/mm3 (4.00-11.30)
[2022-03-08 04:48] LABS: Anion Gap 8 mmol/L (6-16); Blood Urea Nitrogen 69 mg/dL (8-24); Bun/Creatinine Ratio 20.2 (12.0-20.0); CO2, Blood 24 mmol/L (21-32); Chloride, Blood 106 mmol/L (98-108); Creatinine, Blood 3.41 mg/dL (0.60-1.20); Glomerular Filtration Rate 17 (60-); Glucose, Blood 101 mg/dL (70-99); Phosphorus, Blood 3.8 mg/dL (2.5-4.9); Potassium, Blood 4.5 mmol/L (3.5-5.5); Sodium, Blood 138 mmol/L (136-145)
--- NOTE | 2022-03-08 04:48 | NUR ---
SHIFT SUMMARY: PT REMAINS ALERT AND ORIENTED X4, ABLE TO FOLLOW COMMANDS AND MAKE NEEDS KNOWN. BP STABLE, HR PACED SR 70'S, AFEBRILE, ABLE TO TITRATE O2 TO 5L THIS SHIFT SATING >94%. PT CONT OF URINE, ABLE TO VOID INTO URINAL. BOWEL CARE GIVEN THIS SHIFT. PT REPORTS NO PAIN/DISCOMFORT. ABLE TO REPOS IND IN BED. BED IN LOW, CALL LIGHT IN REACH, WILL REPORT TO ONCOMING RN.
--- NOTE | 2022-03-08 17:40 | NUR ---
SHIFT SUMMARY PT REMAINS ALERT AND ORIENTED. BP STABLE. HR NSR. PT HAS DENIED PAIN ALL SHIFT. O2 SATS REMAIN ABOVE 90% ON 3L NC. PT DID NEED TITRATED UP TO 5L FOR ACTIVITY. PT HAD BLOODY NOSE THIS SHIFT THAT STOPPED AFTER MINUTES. PT WAS GIVEN BOWEL CARE TODAY BECAUSE THE LAST CHARTED BM WAS 9 DAYS AGO. PT HAD LARGE BM AT END OF SHIFT TODAY. WILL CONTINUE TO MONITOR AND REPORT TO ONCOMING CARLOZ
--- NOTE | 2022-03-09 03:57 | NUR ---
SHIFT SUMMARY: PT SLEPT ON AND OFF MAJORITY OF THIS SHIFT. ALERT AND ORIENTED X4, BP AND HR STABLE, AFEBRILE, SATING >95% ON 2L NC, DOES DESAT WITH ACTIVITY. PT STATED 8/10 BACK PAIN X1 THIS SHIFT, MEDICATED PER EMAR, WITH GOOD RESULTS. BOWEL CARE GIVEN, NO BM THIS SHIFT. PT WITH APPROX 600 ML OF URINARY OUTPUT. BED IN LOW, CALL LIGHT IN REACH, WILL REPORT TO ONCOMING RN.
[2022-03-09 04:30] LABS: Hematocrit 25.2 % (37.0-53.0); Hemoglobin 8.1 g/dL (13.5-17.5); Mean Corpuscular HGB 33.9 pg (26.0-34.0); Mean Corpuscular HGB Conc 32.1 g/dL (31.5-36.5); Mean Corpuscular Volume 105 fL (80-100); Mean Platelet Volume 12.5 fL (9.1-12.4); Platelet Count 78 K/mm3 (150-400); RDW Coefficient Variation 14.9 % (11.7-14.2); RDW Standard Deviation 57.3 fL (35.1-46.3); Red Blood Cell Count 2.39 M/mm3 (4.30-5.90)
[2022-03-09 04:48] LABS: Anion Gap 6 mmol/L (6-16); Blood Urea Nitrogen 62 mg/dL (8-24); Bun/Creatinine Ratio 18.6 (12.0-20.0); CO2, Blood 27 mmol/L (21-32); Calcium, Blood 8.1 mg/dL (8.5-10.1); Chloride, Blood 107 mmol/L (98-108); Creatinine, Blood 3.33 mg/dL (0.60-1.20); Glomerular Filtration Rate 18 (60-); Glucose, Blood 99 mg/dL (70-99); Phosphorus, Blood 3.5 mg/dL (2.5-4.9); Potassium, Blood 4.1 mmol/L (3.5-5.5); Sodium, Blood 140 mmol/L (136-145)
[2022-03-09 05:50] LABS: BAND PERCENT MAN 2 % (0-8); BASOPHILS ABSOLUTE MAN 0.13 K/mm3 (0.00-0.23); BASOPHILS PERCENT MAN 3 % (0-2); EOSINOPHILS ABSOLUTE MAN 0.09 K/mm3 (0.00-0.68); EOSINOPHILS PERCENT MAN 2 % (0-6); LYMPHOCYTES ABSOLUTE MAN 0.46 K/mm3 (0.84-5.20); LYMPHOCYTES PERCENT MAN 10 % (21-46); MONOCYTES ABSOLUTE MAN 0.13 K/mm3 (0.16-1.47); MONOCYTES PERCENT MAN 3 % (4-13); NEUTROPHILS ABSOLUTE MAN 3.77 K/mm3 (1.96-9.15); SEG NEUTROPHILS PERCENT MAN 80 % (41-73); TOTAL CELLS COUNTED 100
[2022-03-09] MEDS ORDERED: B-COMPLEX WITH1 EAC2 PO (12:16)
[2022-03-09] MEDS ORDERED: CLOT10 MT (12:17)
[2022-03-09] MEDS ORDERED: DOCUZEN 8.6-501 EACH PO (12:20)
[2022-03-09] MEDS ORDERED: [UNRECOGNIZED DRUG - CODE] PO (12:20)
[2022-03-09] MEDS ORDERED: NASAL SPRAY88 ML (12:22)
[2022-03-09 13:02] LABS: SARS-Cov-2 (COVID-19) PCR, MMC NEGATIVE (NEGATIVE)
--- NOTE | 2022-03-09 17:21 | NUR ---
UPDATE PT DISCHARGED TO [facility]. PT LEFT WITH ALL OF HIS BELONGINGS AND NOTIFIED. ATTEMPTED TO CALL REPORT TO [facility], BUT COULD NOT GET AN ANSWER ON THE PHONE. PICC LINE WAS REMOVED PRIOR TO DISCHARGE WITHOUT COMPLICATIONS.
== END 2022-03-09 16:45 | DRG 871 ==
LOC: ER 09:30 → ICUW 13:09 → PCU 02-26 16:19
PROVIDERS: Family Medicine; Internal Medicine; Internal Medicine Critical Care Medicine; Internal Medicine Nephrology; Nurse Practitioner Acute Care; Student in an Organized Health Care Education/Training Program; ADMIT Internal Medicine
PROC: 05H433Z Insertion of Infusion Device into Left Innominate Vein, Percutaneous Approach (ICD-10-PCS; principal; 2022-02-25)
PROC: 3E033XZ Introduction of Vasopressor into Peripheral Vein, Percutaneous Approach (ICD-10-PCS; 2022-02-25)
PROC: 3E03329 Introduction of Other Anti-infective into Peripheral Vein, Percutaneous Approach (ICD-10-PCS; 2022-02-25)
PROC: 5A0955A Assistance with Respiratory Ventilation, Greater than 96 Consecutive Hours, High Flow/Velocity Cannula (ICD-10-PCS; 2022-03-01)
DX: A41.9 Sepsis, unspecified organism (principal); J18.9 Pneumonia, unspecified organism; R65.21 Severe sepsis with septic shock; K72.00 Acute and subacute hepatic failure without coma; J96.21 Acute and chronic respiratory failure with hypoxia; N17.9 Acute kidney failure, unspecified; J44.0 Chronic obstructive pulmonary disease with (acute) lower respiratory infection; E87.1 Hypo-osmolality and hyponatremia; E87.4 Mixed disorder of acid-base balance; J44.1 Chronic obstructive pulmonary disease with (acute) exacerbation; N18.5 Chronic kidney disease, stage 5; I12.0 Hypertensive chronic kidney disease with stage 5 chronic kidney disease or end stage renal disease; B37.0 Candidal stomatitis; I25.10 Atherosclerotic heart disease of native coronary artery without angina pectoris; Z66 Do not resuscitate; R74.01 Elevation of levels of liver transaminase levels; E83.39 Other disorders of phosphorus metabolism; I48.0 Paroxysmal atrial fibrillation; I70.1 Atherosclerosis of renal artery; Z20.822 Contact with and (suspected) exposure to COVID-19; E87.6 Hypokalemia; F41.9 Anxiety disorder, unspecified; I71.40 Abdominal aortic aneurysm, without rupture, unspecified; I71.23 Aneurysm of the descending thoracic aorta, without rupture; D69.6 Thrombocytopenia, unspecified; E87.70 Fluid overload, unspecified; E03.9 Hypothyroidism, unspecified; R94.5 Abnormal results of liver function studies; D63.1 Anemia in chronic kidney disease; R53.81 Other malaise; K59.00 Constipation, unspecified; I49.5 Sick sinus syndrome; E78.00 Pure hypercholesterolemia, unspecified; Z95.0 Presence of cardiac pacemaker; Z98.890 Other specified postprocedural states; Z85.21 Personal history of malignant neoplasm of larynx; Z90.5 Acquired absence of kidney; Z95.5 Presence of coronary angioplasty implant and graft; Z85.51 Personal history of malignant neoplasm of bladder; Z88.0 Allergy status to penicillin; Z88.8 Allergy status to other drugs, medicaments and biological substances; Z91.040 Latex allergy status; Z91.041 Radiographic dye allergy status; Z79.899 Other long term (current) drug therapy; Z79.82 Long term (current) use of aspirin; Z85.53 Personal history of malignant neoplasm of renal pelvis; Z95.1 Presence of aortocoronary bypass graft; Z87.891 Personal history of nicotine dependence; Z92.3 Personal history of irradiation; Z90.49 Acquired absence of other specified parts of digestive tract
CPT/HCPCS: 0241U; 36415; 36569; 51702; 71045; 76705; 76770; 80053; 80069; 80076; 81001; 82550; 82552; 82570; 82803; 83010; 83605; 83615; 83735; 83880; 84100; 84145; 84300; 84484; 85025; 85027; 85060; 85384; 85610; 85730; 87040; 87086; 87205; 87449; 93005; 93010; 93306; 93975; 94640; 94644; 94664; 94760; 94762; 96361; 96365; 96366; 96375; 97110; 97116; 97163; 97530; 99291-25; A9270; C1751; C1769; J0456; J0696; J1644; J1885; J1940; J2920; J2930; J3475; J3480; J7030; J7040; J7050; J7060; J7070; P9047; U0004

== ENCOUNTER 2022-09-11 09:56 | Inpatient (IN) | payer OTHER ==
[2022-09-11] VITALS (20 sets, daily range): BP systolic 80–107; BP diastolic 42–91
[~2022-09-11 09:56] MED LIST changes: +B-COMPLEX WITH1 EAC2 PO; +CLOT10 MT; +DOCUZEN 8.6-501 EACH PO; +NASAL SPRAY88 ML; +[UNRECOGNIZED DRUG - CODE] PO
[2022-09-11 10:52] LABS: BASOPHILS ABSOLUTE AUTO 0.03 K/mm3 (0.00-0.23); BASOPHILS PERCENT AUTO 0 % (0-2); EOSINOPHILS ABSOLUTE AUTO 0.02 K/mm3 (0.00-0.68); EOSINOPHILS PERCENT AUTO 0 % (0-6); IMMATURE GRAN ABSOLUTE AUTO 0.09 K/mm3 (0.00-0.10); IMMATURE GRAN PERCENT AUTO 1 % (0-1); LYMPHOCYTES ABSOLUTE AUTO 0.56 K/mm3 (0.84-5.20); LYMPHOCYTES PERCENT AUTO 7 % (21-46); MONOCYTES ABSOLUTE AUTO 0.19 K/mm3 (0.16-1.47); MONOCYTES PERCENT AUTO 2 % (4-13); Mean Corpuscular HGB 31.9 pg (26.0-34.0); Mean Corpuscular HGB Conc 33.3 g/dL (31.5-36.5); Mean Corpuscular Volume 96 fL (80-100); Mean Platelet Volume 10.6 fL (9.1-12.4); NEUTROPHILS ABSOLUTE AUTO 7.01 K/mm3 (1.96-9.15); NEUTROPHILS PERCENT AUTO 89 % (41-73); Platelet Count 173 K/mm3 (150-400); RDW Coefficient Variation 16.8 % (11.7-14.2); RDW Standard Deviation 58.5 fL (35.1-46.3); Red Blood Cell Count 3.76 M/mm3 (4.30-5.90)
[2022-09-11 11:14] LABS: Albumin, Blood 2.4 g/dL (3.4-5.0); Albumin/Globulin Ratio 0.5 (0.8-1.8); Bilirubin, Total 1.1 mg/dL (0.1-1.0); Bun/Creatinine Ratio 13.3 (12.0-20.0); Calcium, Blood 8.7 mg/dL (8.5-10.1); Creatinine, Blood 1.66 mg/dL (0.60-1.20); Globulin, Blood 4.9 g/dL (2.2-4.0); Total Protein, Blood 7.3 g/dL (6.4-8.2)
[2022-09-11 12:02] LABS: Influenza A, PCR NEGATIVE (NEGATIVE); Influenza B, PCR NEGATIVE (NEGATIVE); Resp Syncytial Virus, PCR NEGATIVE (NEGATIVE); SARS-Cov-2 (COVID-19) PCR, MMC NEGATIVE (NEGATIVE)
[2022-09-11 15:43] LABS: Anti-Xa UFH, PHA Monitoring <0.10 IU/mL; International Normalized Ratio 1.17; Prothrombin Time Results 12.2 Sec (9.7-11.5)
--- NOTE | 2022-09-11 19:54 | NUR ---
Admit note Received report from ED. Pt to room, transfered to bed with sba. Pt and spouse educated on room and call light. Pt educated to call when needing to get up. Pt alert, oriented X4; calm and cooperative with care. Pt denies pain, chest pain/pressure, nauses, and numb/tingling. Pt reports SOB with activity, not on o2 on transport to room, spo2 >94% on ra, ls dim to bases. Tele sinus with occasional paced beats, bp soft, but stable. Heparin gtt infusing per orders. Starte new PIV for ns infsion. Other vss. No other acute changes noted. Spouse plans to come in tomorrow with medication list. Critical trop tending down, discussed with studio operations engineer in charge Mike.
[2022-09-12] VITALS (18 sets, daily range): BP systolic 69–131; BP diastolic 41–69
[2022-09-12 01:50] LABS: Albumin, Blood 1.9 g/dL (3.4-5.0); Albumin/Globulin Ratio 0.5 (0.8-1.8); Bilirubin, Total 0.3 mg/dL (0.1-1.0); Bun/Creatinine Ratio 14.6 (12.0-20.0); Creatinine, Blood 1.71 mg/dL (0.60-1.20); Globulin, Blood 3.8 g/dL (2.2-4.0); Magnesium, Blood 1.8 mg/dL (1.6-2.4); Potassium, Blood 4.3 mmol/L (3.5-5.5); Total Protein, Blood 5.7 g/dL (6.4-8.2)
[2022-09-12 01:51] LABS: Hematocrit 31.3 % (37.0-53.0); Mean Corpuscular HGB 31.6 pg (26.0-34.0); Mean Corpuscular HGB Conc 31.9 g/dL (31.5-36.5); Mean Corpuscular Volume 99 fL (80-100); Mean Platelet Volume 10.7 fL (9.1-12.4); Platelet Count 141 K/mm3 (150-400); RDW Coefficient Variation 16.9 % (11.7-14.2); RDW Standard Deviation 61.7 fL (35.1-46.3); Red Blood Cell Count 3.16 M/mm3 (4.30-5.90); White Blood Cell Count 11.68 K/mm3 (4.00-11.30)
--- NOTE | 2022-09-12 05:07 | NUR ---
SHIFT SUMMARY AOX4. DENIES PAIN. BP LOW T/O NIGHT & SINCE ARRIVING TO FLOOR. INFORMED DR ACNO OF LOW BP & MAP 57-63 T/O NIGHT. DR CANO ORDERED 1L BOLUS NS & INCREASED NS RATE TO 150ML/HR. BP INCREASED TO LOW 100'S SYSTOLIC & MAP NOW >65. DENIES N/V OR DYSPNEA. SPO2 >92% ON RA. E/U RESP. BILAT LOW LOBES DIM c COARSE BREATH SOUNDS. TELE V PACED NSR c 1ST DEGREE HB HR 60'S. TROPONIN TRENDING DOWN TO 217 FROM 442 YESTERDAY. HEP GTT @14U/KG/HR. CALL LIGHT IN REACH & PT ABLE TO MAKE NEEDS KNOWN.
--- NOTE | 2022-09-12 18:03 | NUR ---
SHIFT SUMMARY: NO ACUTE CHANGE FOR THE SHIFT. PT REMAINED ALERT AND ORIENTED, VITALS HRR VPACED 60-70'S, SBP 95-110'S, SATS ABOVE 92% ON 1L OF O2, AFEBRILE. PT DENIES ANY CHEST PAIN/PRESSURE OR ANY DISCOMFORT. PT HAS BEEN AMBULATING TO THE BATHROOM SBA. WAS IN TO VISIT THIS MORNING WAS UPDATED REGARDING PT'S STATUS. PT FOR POSSIBLE DC IN AM IF STABLE. PT HAS BEEN RESTING IN BED, CALLS APPROPRIATELY. NO OTHER ISSUES REPORTED, CALL LIGHTS WITHIN REACH. WILL REPORT TO ONCOMING SHIFT
[2022-09-13 00:31] LABS: Source, Urine Clean Catch
[2022-09-13 00:37] LABS: Bilirubin, Urine Neg (Neg); Blood, Urine Neg (Neg); Glucose Qualitative, Urine Neg (Neg); Ketones, Urine Neg (Neg); Leukocyte Esterase, Urine Neg (Neg); Nitrite, Urine Neg (Neg); Protein, Urine 1+ (Neg); Urobilinogen, Urine NORM (Normal)
[2022-09-13 00:38] LABS: Appearance, Urine Clear (Clear); Color, Urine Yellow (P-Yellow)
[2022-09-13 03:20] VITALS: BP 124/70
[2022-09-13 04:26] LABS: Hematocrit 30.7 % (37.0-53.0); Hemoglobin 9.7 g/dL (13.5-17.5); Mean Corpuscular HGB 31.3 pg (26.0-34.0); Mean Corpuscular HGB Conc 31.6 g/dL (31.5-36.5); Mean Corpuscular Volume 99 fL (80-100); Mean Platelet Volume 11.1 fL (9.1-12.4); Platelet Count 133 K/mm3 (150-400); RDW Standard Deviation 62.2 fL (35.1-46.3); White Blood Cell Count 5.97 K/mm3 (4.00-11.30)
[2022-09-13 04:58] LABS: Albumin, Blood 1.8 g/dL (3.4-5.0); Anion Gap 5 mmol/L (6-16); Blood Urea Nitrogen 20 mg/dL (8-24); Bun/Creatinine Ratio 13.8 (12.0-20.0); CO2, Blood 23 mmol/L (21-32); Calcium, Blood 8.1 mg/dL (8.5-10.1); Chloride, Blood 115 mmol/L (98-108); Creatinine, Blood 1.45 mg/dL (0.60-1.20); Free Thyroxine 0.94 ng/dL (0.70-1.60); Glomerular Filtration Rate 48 (60-); Glucose, Blood 99 mg/dL (70-99); Phosphorus, Blood 3.4 mg/dL (2.5-4.9); Potassium, Blood 4.1 mmol/L (3.5-5.5); Sodium, Blood 143 mmol/L (136-145); Thyroid Stimulating Hormone 0.458 uIU/mL (0.360-4.800)
--- NOTE | 2022-09-13 05:23 | NUR ---
SHIFT SUMMARY PT A&Ox4, CALLS AND COMMUNICATES NEEDS APPROPRIATELY. BP STABLE, PACED 70's, DENIES CP/PRESSURE. SpO2> 92% RA-1L, DENIES SOB. PT IND IN ROOM. NO OTHER EVENTS. REPORT GIVEN TO MEDICAL FLOOR RN AT 0550. PT BELONGINGS BEING GATHERED BY PCT, WILL TRANSFER PT TO [facility].
[2022-09-13 08:06] VITALS: BP 126/75
[2022-09-13] MEDS ORDERED: VISBIOME 112.51 EACH PO (12:53)
[2022-09-13] MEDS ORDERED: AZIT500 PO (12:55)
[2022-09-13] MEDS ORDERED: CEFD300 PO (12:55)
--- NOTE | 2022-09-13 14:15 | NUR ---
PATIENT DISCHARGED TO HOME WITH . IV SALINE LOCKS AND TELEMETRY REMOVED WITHOUT INCIDENT. VERBALIZED UNDERSTANDING OF D/C INSTRUCTIONS, ALL QUESTIONS ANSWERED. OFF UNIT VIA W/C AT 1406. NO PERSONAL BELONGINGS LEFT BEHIND IN ROOM.
== END 2022-09-13 14:14 | disposition home or self-care (01) | DRG 871 ==
LOC: ER 09:56 → PCU 15:55 → MEDS 09-13 06:10 → ENPENDDIS 09-13 12:05 → MEDS 09-13 14:14
PROVIDERS: Physician Assistant; ADMIT Internal Medicine
DX: A41.9 Sepsis, unspecified organism (principal); I21.A1 Myocardial infarction type 2; J18.9 Pneumonia, unspecified organism; J96.21 Acute and chronic respiratory failure with hypoxia; J44.0 Chronic obstructive pulmonary disease with (acute) lower respiratory infection; R65.20 Severe sepsis without septic shock; Z66 Do not resuscitate; I48.0 Paroxysmal atrial fibrillation; E78.5 Hyperlipidemia, unspecified; I25.10 Atherosclerotic heart disease of native coronary artery without angina pectoris; F41.9 Anxiety disorder, unspecified; N18.30 Chronic kidney disease, stage 3 unspecified; D63.1 Anemia in chronic kidney disease; I12.9 Hypertensive chronic kidney disease with stage 1 through stage 4 chronic kidney disease, or unspecified chronic kidney disease; K59.09 Other constipation; E03.9 Hypothyroidism, unspecified; R05.3 Chronic cough; Z20.822 Contact with and (suspected) exposure to COVID-19; I95.9 Hypotension, unspecified; Z99.81 Dependence on supplemental oxygen; Z85.51 Personal history of malignant neoplasm of bladder; Z85.528 Personal history of other malignant neoplasm of kidney; Z85.21 Personal history of malignant neoplasm of larynx; Z79.82 Long term (current) use of aspirin; Z95.1 Presence of aortocoronary bypass graft; Z90.5 Acquired absence of kidney; Z95.0 Presence of cardiac pacemaker; Z98.890 Other specified postprocedural states; Z90.89 Acquired absence of other organs; Z88.0 Allergy status to penicillin; Z88.8 Allergy status to other drugs, medicaments and biological substances; Z91.040 Latex allergy status; Z95.5 Presence of coronary angioplasty implant and graft; Z79.899 Other long term (current) drug therapy; Z87.891 Personal history of nicotine dependence; Z91.041 Radiographic dye allergy status; Z91.048 Other nonmedicinal substance allergy status; Z92.3 Personal history of irradiation
CPT/HCPCS: 0241U; 36415; 71045; 71260; 80053; 80069; 83605; 83735; 83880; 84145; 84439; 84443; 84484; 85025; 85027; 85520; 85610; 85730; 87040; 93005; 93010; 93306; 96365-59; 96375-59; 96376-59; 99285-25; A9270; J0456; J0696; J1644; J1650; J2405; J7030; J7050; Q9967

== ENCOUNTER 2023-03-17 16:55 | Observation (INO) | payer OTHER ==
[~2023-03-17] VITALS: Ht 167.6 cm; Wt 67.9 kg
[~2023-03-17 16:55] MED LIST changes: +AZIT500 PO; +CEFD300 PO; +VISBIOME 112.51 EACH PO
[2023-03-17 17:54] LABS: BASOPHILS ABSOLUTE AUTO 0.03 K/mm3 (0.00-0.23); BASOPHILS PERCENT AUTO 0 % (0-2); EOSINOPHILS PERCENT AUTO 0 % (0-6); Hematocrit 27.8 % (37.0-53.0); Hemoglobin 8.9 g/dL (13.5-17.5); IMMATURE GRAN ABSOLUTE AUTO 0.08 K/mm3 (0.00-0.10); IMMATURE GRAN PERCENT AUTO 1 % (0-1); LYMPHOCYTES ABSOLUTE AUTO 2.79 K/mm3 (0.84-5.20); LYMPHOCYTES PERCENT AUTO 18 % (21-46); MONOCYTES ABSOLUTE AUTO 0.85 K/mm3 (0.16-1.47); MONOCYTES PERCENT AUTO 6 % (4-13); Mean Corpuscular HGB 34.5 pg (26.0-34.0); Mean Corpuscular Volume 108 fL (80-100); Mean Platelet Volume 12.9 fL (9.1-12.4); NEUTROPHILS ABSOLUTE AUTO 11.68 K/mm3 (1.96-9.15); NEUTROPHILS PERCENT AUTO 76 % (41-73); Platelet Count 81 K/mm3 (150-400); RDW Coefficient Variation 18.6 % (11.7-14.2); RDW Standard Deviation 73.8 fL (35.1-46.3); Red Blood Cell Count 2.58 M/mm3 (4.30-5.90); White Blood Cell Count 15.43 K/mm3 (4.00-11.30)
[2023-03-17] MEDS ORDERED: PLAVIX75 MG PO (18:11)
[2023-03-17] MEDS ORDERED: TORSE20 PO (18:12)
[2023-03-17 18:19] LABS: Albumin, Blood 1.5 g/dL (3.4-5.0); Albumin/Globulin Ratio 0.3 (0.8-1.8); Bilirubin, Total 1.3 mg/dL (0.1-1.0); Bun/Creatinine Ratio 14.4 (12.0-20.0); Calcium, Blood 7.7 mg/dL (8.5-10.1); Creatinine, Blood 1.94 mg/dL (0.60-1.20); Globulin, Blood 4.7 g/dL (2.2-4.0); Potassium, Blood 3.2 mmol/L (3.5-5.5); Total Protein, Blood 6.2 g/dL (6.4-8.2)
[2023-03-17 18:57] LABS: Free Thyroxine 1.07 ng/dL (0.70-1.60)
[2023-03-17 19:00] LABS: Thyroid Stimulating Hormone 1.79 uIU/mL (0.360-4.800)
[2023-03-17 21:55] LABS: Influenza A, PCR NEGATIVE (NEGATIVE); Influenza B, PCR NEGATIVE (NEGATIVE); Resp Syncytial Virus, PCR NEGATIVE (NEGATIVE); SARS-Cov-2 (COVID-19) PCR, MMC NEGATIVE (NEGATIVE)
[2023-03-18] VITALS (19 sets, daily range): BP systolic 74–104; BP diastolic 50–66
--- NOTE | 2023-03-18 03:00 | NUR ---
[facility]. PT IS AWAKE AND ALERT. ORIENTED X 3 AND IS COOPERATIVE WITH CARE. SLIGHTLY VIEJAS. SPEECH IS SLOW, BUT CLEAR AND APPROPRIATE. PT IS ABLE TO ASSIST WITH REPOSITIONING. C/O GENERAL WEAKNESS. INCONTINENT OF URINE- ATTENDS REPLACED. MONITOR SHOWS NSR, RATE 70s. BP STABLE. RA SATS 99%. RESPIRATIONS EVEN AND UNLABORED. DENIES C/O SOB OR DYSPNEA AT THIS TIME. SEE ADMIT ASSESSMENT FOR FULL ASSESSMENT.
[2023-03-18 03:35] LABS: BASOPHILS ABSOLUTE AUTO 0.02 K/mm3 (0.00-0.23); BASOPHILS PERCENT AUTO 0 % (0-2); EOSINOPHILS ABSOLUTE AUTO 0.19 K/mm3 (0.00-0.68); EOSINOPHILS PERCENT AUTO 2 % (0-6); Hematocrit 23.8 % (37.0-53.0); Hemoglobin 7.7 g/dL (13.5-17.5); IMMATURE GRAN ABSOLUTE AUTO 0.07 K/mm3 (0.00-0.10); IMMATURE GRAN PERCENT AUTO 1 % (0-1); LYMPHOCYTES ABSOLUTE AUTO 1.69 K/mm3 (0.84-5.20); LYMPHOCYTES PERCENT AUTO 19 % (21-46); MONOCYTES ABSOLUTE AUTO 0.43 K/mm3 (0.16-1.47); MONOCYTES PERCENT AUTO 5 % (4-13); Mean Corpuscular HGB 34.8 pg (26.0-34.0); Mean Corpuscular HGB Conc 32.4 g/dL (31.5-36.5); Mean Corpuscular Volume 108 fL (80-100); Mean Platelet Volume 12.1 fL (9.1-12.4); NEUTROPHILS PERCENT AUTO 73 % (41-73); Platelet Count 60 K/mm3 (150-400); RDW Coefficient Variation 18.7 % (11.7-14.2); RDW Standard Deviation 73.9 fL (35.1-46.3); Red Blood Cell Count 2.21 M/mm3 (4.30-5.90)
[2023-03-18 03:56] LABS: Albumin, Blood 1.7 g/dL (3.4-5.0); Albumin/Globulin Ratio 0.4 (0.8-1.8); Bilirubin, Total 1.1 mg/dL (0.1-1.0); Bun/Creatinine Ratio 14.7 (12.0-20.0); Calcium, Blood 7.3 mg/dL (8.5-10.1); Creatinine, Blood 1.77 mg/dL (0.60-1.20); Potassium, Blood 2.9 mmol/L (3.5-5.5); Total Protein, Blood 5.7 g/dL (6.4-8.2)
--- NOTE | 2023-03-18 04:38 | NUR ---
ABNORMAL LABS/HYPOTENSION DR. WHITE NOTIFIED OF LACTIC ACID 2.6 AND POTASSIUM 2.9- NEW ORDERS RECEIVED FOR KCL REPLACEMENT. ALSO NOTIFIED OF HYPOTENSION WITH MAP 55-65. WILL CONTINUE TO MONITOR BP, MENTATION, AND URINE OUTPUT AT THIS TIME.
[2023-03-18 06:20] LABS: Source, Urine Clean Catch
[2023-03-18 06:29] LABS: Appearance, Urine Clear (Clear); Bilirubin, Urine Neg (Neg); Blood, Urine Neg (Neg); Color, Urine Yellow (P-Yellow); Glucose Qualitative, Urine Neg (Neg); Ketones, Urine Neg (Neg); Leukocyte Esterase, Urine Neg (Neg); Nitrite, Urine Neg (Neg); Protein, Urine Neg (Neg); Urobilinogen, Urine NORM (Normal)
--- NOTE | 2023-03-18 08:40 | NUR ---
AM NOTE Pt alert, oriented x4; calm and cooperative with care. Pt resting in bed, moves ind in room. Pt denies pain, chest pain/pressure, nausea, sob and numb/tingling. Pt reports dizziness with getting up. Tele sinus 70's, bp soft, MAP >60. Spo2 >90% on ra, breathing even and unlabored. Abd distended, nontender with hypoactive bt. Other vss. no other acute changes noted. Will continue to monitor.
[2023-03-18 10:39] LABS: International Normalized Ratio 1.3; Prothrombin Time Results 13.4 Sec (9.7-11.5)
[2023-03-18] MEDS ORDERED: Armour Thyroid120 MG PO (12:13)
[2023-03-18] MEDS ORDERED: COQ-10100 MG PO (12:14)
[2023-03-18 13:38] LABS: Hematocrit 30.1 % (37.0-53.0); Hemoglobin 9.5 g/dL (13.5-17.5)
--- NOTE | 2023-03-18 17:15 | NUR ---
Shift Summary Pt reporting sharp abd pain this evening, pt states this has been happening for some time at home, he usually uses milk of mag; notified Dr Stanford, new orders for miralax. Pt continuing to receive midodrine for bp. Other vss. No other acute changes noted. Will continue to monitor.
[2023-03-19] VITALS (9 sets, daily range): BP systolic 70–111; BP diastolic 45–62
[2023-03-19 03:46] LABS: BASOPHILS ABSOLUTE AUTO 0.05 K/mm3 (0.00-0.23); BASOPHILS PERCENT AUTO 1 % (0-2); EOSINOPHILS ABSOLUTE AUTO 0.05 K/mm3 (0.00-0.68); EOSINOPHILS PERCENT AUTO 1 % (0-6); Hematocrit 25.2 % (37.0-53.0); Hemoglobin 8.1 g/dL (13.5-17.5); IMMATURE GRAN ABSOLUTE AUTO 0.09 K/mm3 (0.00-0.10); IMMATURE GRAN PERCENT AUTO 1 % (0-1); LYMPHOCYTES ABSOLUTE AUTO 2.22 K/mm3 (0.84-5.20); LYMPHOCYTES PERCENT AUTO 20 % (21-46); MONOCYTES ABSOLUTE AUTO 0.66 K/mm3 (0.16-1.47); MONOCYTES PERCENT AUTO 6 % (4-13); Mean Corpuscular HGB 34.6 pg (26.0-34.0); Mean Corpuscular HGB Conc 32.1 g/dL (31.5-36.5); Mean Corpuscular Volume 108 fL (80-100); Mean Platelet Volume 12.1 fL (9.1-12.4); NEUTROPHILS ABSOLUTE AUTO 8.02 K/mm3 (1.96-9.15); NEUTROPHILS PERCENT AUTO 72 % (41-73); Platelet Count 67 K/mm3 (150-400); RDW Coefficient Variation 18.8 % (11.7-14.2); RDW Standard Deviation 73.8 fL (35.1-46.3); Red Blood Cell Count 2.34 M/mm3 (4.30-5.90); White Blood Cell Count 11.09 K/mm3 (4.00-11.30)
[2023-03-19 04:10] LABS: Albumin, Blood 1.5 g/dL (3.4-5.0); Albumin/Globulin Ratio 0.4 (0.8-1.8); Bilirubin, Total 0.9 mg/dL (0.1-1.0); Bun/Creatinine Ratio 14.6 (12.0-20.0); Calcium, Blood 7.8 mg/dL (8.5-10.1); Creatinine, Blood 1.85 mg/dL (0.60-1.20); Potassium, Blood 3.6 mmol/L (3.5-5.5); Total Protein, Blood 5.5 g/dL (6.4-8.2)
--- NOTE | 2023-03-19 04:43 | NUR ---
SHIFT SUMMARY PT A&Ox4, CALLS AND COMMUNICATES NEEDS APPROPRIATELY. BP SOFT, PHYSICIAN NOTIFIED, ORDERS PLACED. PT ASYMPTOMATIC, REPORTS MILD DIZZINESS WHEN INITIALLY SITTING UP, DENIES CP/PRESSURE. SR/PACED 70's. SpO2> 92% RA, DENIES CP/PRESSURE. SBA w/ FWW TO BATHROOM, CONTINENT OF URINE, NO BM THIS SHIFT. NO OTHER EVENTS, WILL REPORT TO ONCOMING RN.
--- NOTE | 2023-03-19 07:47 | NUR ---
AM NOTE Pt alert, oriented x4; calm and cooperative with care. Pt resting in bed. Bp 70/58 (63), denies dizziness, medicated with midodrine. Pt denies pain, chest pain/pressure, sob, nausea and numb/tingling. Edema improved from yesterday. Spo2 >90% on ra, breathing even and unlabored. Tele sinus 60's. Abd severe distendeded, +bt t/o; nontender; pt had bm. No other acute changes noted. Will continue to monitor.
[2023-03-19] MEDS ORDERED: FERSU300 PO (11:56)
[2023-03-19] MEDS ORDERED: MIDO5 PO (11:57)
[2023-03-19] MEDS ORDERED: SOAANZ20 M1 PO (11:58)
--- NOTE | 2023-03-19 12:42 | NUR ---
Discharge Summary No acute changes t/o shift. Pt continues to have low bp, medicating with midodrine per orders. Continueing with discharge. Clarified discharge directions with Dr Barraza; added Torsemide 20mg po q3d. Medications faxed to [facility]. Pt educated on discharge instructions, follow up appointment, prescriptions and currentl illness. Pt left room via wheelchair at approx [phone].
[2023-03-20 08:09] LABS: HBSAG SCREEN Negative (Negative); HCV AB Non Reactive (Non Reactive); HEP A AB, IGM Negative (Negative); HEP B CORE AB, TOT Negative (Negative)
== END 2023-03-19 12:46 | disposition home or self-care (01) ==
LOC: ER 16:55 → ERHOLD 16:56 → PCU 16:56
PROVIDERS: Emergency Medicine; Family Medicine; Physician Assistant; ADMIT Internal Medicine
DX: K74.60 Unspecified cirrhosis of liver (principal); I95.9 Hypotension, unspecified; N18.30 Chronic kidney disease, stage 3 unspecified; E87.6 Hypokalemia; D69.6 Thrombocytopenia, unspecified; D63.1 Anemia in chronic kidney disease; I25.10 Atherosclerotic heart disease of native coronary artery without angina pectoris; Z95.0 Presence of cardiac pacemaker; I48.91 Unspecified atrial fibrillation; E03.9 Hypothyroidism, unspecified; I12.9 Hypertensive chronic kidney disease with stage 1 through stage 4 chronic kidney disease, or unspecified chronic kidney disease; J44.9 Chronic obstructive pulmonary disease, unspecified; N17.9 Acute kidney failure, unspecified; R18.8 Other ascites; Z66 Do not resuscitate; Z20.822 Contact with and (suspected) exposure to COVID-19
CPT/HCPCS: 0241U; 36415; 71046; 74019; 74177; 76705; 80053; 81003; 82533; 82607; 82746; 83605; 83880; 84439; 84443; 85014; 85018; 85025; 85610; 85730; 86704; 86708; 86803; 86850; 86900; 86901; 87340; 96361; 96365; 96366; 96367; 96368; 96372; 96376; 97116; 97162; 97166; 97530; 97535; 99285-25; A9270; G0378; J0696; J1650; J3230; J3480; J7030; J7050; P9047; Q9967

== ENCOUNTER 2023-03-22 09:52 | Emergency (ER) | payer OTHER ==
[~2023-03-22] VITALS: Ht 182.9 cm; Wt 69.4 kg
[~2023-03-22 09:52] MED LIST changes: +Armour Thyroid120 MG PO; +COQ-10100 MG PO; +FERSU300 PO; +MIDO5 PO; +PLAVIX75 MG PO; +SOAANZ20 M1 PO
[2023-03-22 11:21] VITALS: BP 94/52
[2023-03-22] MEDS ORDERED: Ativan1 MG PO (11:33)
== END 2023-03-22 11:53 | disposition home or self-care (01) ==
LOC: ER 09:52
DX: R06.6 Hiccough (principal); I48.0 Paroxysmal atrial fibrillation; N18.30 Chronic kidney disease, stage 3 unspecified; J44.9 Chronic obstructive pulmonary disease, unspecified; E78.5 Hyperlipidemia, unspecified; I25.10 Atherosclerotic heart disease of native coronary artery without angina pectoris; Z95.5 Presence of coronary angioplasty implant and graft; Z95.1 Presence of aortocoronary bypass graft; Z91.040 Latex allergy status; Z88.8 Allergy status to other drugs, medicaments and biological substances; Z91.048 Other nonmedicinal substance allergy status; Z79.899 Other long term (current) drug therapy; Z79.82 Long term (current) use of aspirin; Z87.891 Personal history of nicotine dependence
CPT/HCPCS: 96372; 99283-25; J3230